=== PATIENT | male | born 1940 | race Caucasian/White ===

== ENCOUNTER → 2016-11-03 | Outpatient (CLI) | payer OTHER ==
[~2016-11-03] MED LIST: IOPAMIDOL (ISOVUE 370) 75 ML BTL IV ONE
--- NOTE | 2016-11-04 16:21 | CT ---
CT Angiogram of the Abdomen and Pelvis, With Bilateral Lower Extremity Runoff Angiogram Indication: Status post left leg stenting. Pain. Evaluate patency. Technique: 1.25-mm thin axial images are performed from the lung bases to the ankles during intraven ous contrast injection of 100 mL of Isovue-370. Coronal and parasagittal reformatted images are revi ewed on a separate workstation. Dose reduction techniques were utilized. Comparison: September 01, 2015. Findings CT Angiogram of the Abdomen and Pelvis: Descending thoracic aorta is normal in size, with mild ather osclerosis. Celiac trunk, SMA, and bilateral renal arteries are widely patent. Incidentally noted i s a small accessory inferior pole right renal artery. There is an infrarenal abdominal aortic aneury sm that measures 3.7 x 3.9 cm. It is unchanged from the prior CT. The aneurysm stops above the bifu rcation. There is moderate iliac atherosclerosis bilaterally. This is contributing to mild luminal stenosis, less than 30 degrees, in the right common iliac artery, and mild to moderate stenosis on the left, 40 to 50%, especially in the central left common iliac artery. The internal iliac artery origin on the left is occluded, with branches reconstituted distally. The internal iliac artery on the right is p atent. There is mild atherosclerosis of bilateral extremity iliac arteries, without significant rate-limitin g stenosis. None of these are particularly changed. Runoff Angiogram Right: There is moderate atherosclerosis of the common femoral artery, with approximately 30 to 40% stenosis at the mid femoral head. SFA is chronically occluded from its origin down to the popliteal artery. The profunda is widely patent. The popliteal artery is reconstituted, with subsequent three -vessel runoff to ankle. Left: There is moderate plaque at the common femoral artery, with 40% luminal stenosis. There is a widely patent profunda. The SFA stent, which starts proximal thigh, extending to distal thigh, is oc cluded. The proximal SFA above the stent is occluded, and the popliteal artery distal to the stent i s occluded. The distal popliteal artery is reconstituted, followed by two-vessel runoff to left ankl e. CT Abdomen and Pelvis: Arterial phase evaluation of the solid and visceral organs are grossly normal . At the ileocecal valve, there is a mass-like protrusion of 4.6 x 3.3 cm that is nonspecific. This could just represent a bulbous ileocecal valve. The appendix is normal. Mass at the ileocecal valv e is not completely excluded. Has the patient had a colonoscopy? This area was fairly normal on the previous CT scan. The lung bases are clear. Impressions 1. Occluded left SFA stent, with subsequently occluded entire left SFA and proximal popliteal artery . 2. Chronically occluded right SFA and proximal popliteal artery. 3. Reconstitution of bilateral distal popliteal arteries. 4. Three-vessel runoff on the right, two-vessel runoff on the left. 5. No change in infrarenal abdominal aortic aneurysm at 3.7 x 3.9 cm. 6. Bulbous appearance at ileocecal valve, new since prior CT. Differential includes prominent ileoc ecal valve, stool, versus mass. Has the patient had a recent colonoscopy? Findings are discussed with Dr. See Baer.
== END ==
LOC: FIMAGING 15:38
PROVIDERS: ATTEND Internal Medicine
DX: Z98.890 Other specified postprocedural states (principal); I74.3 Embolism and thrombosis of arteries of the lower extremities
CPT/HCPCS: Q9967

== ENCOUNTER 2016-11-29 13:51 | Emergency (ER) | payer OTHER ==
--- NOTE | 2016-11-29 13:59 | EDPHY ---
H & P Stated Complaint: Intermittent abd discomfort x 3 days that is gone now; relieved w/mylanta - Personal History Current Tetanus Diphtheria and Acellular Pertussis (TDAP): Yes Tetanus Vaccine Date: 3 yrs ago - Medical/Surgical History Hx Splenectomy or Spleen Trauma: No Other PMH: CAD, PVD, AAA, COPD, CARDIAC STENTS - Social History Smoking Status: Former smoker Time Seen by Provider: 11/29/16 13:58 Constitutional: Initial Vital Signs Temperature (C) 36.9 C 11/29/16 13:52 Heart Rate 81 11/29/16 13:52 Respiratory Rate 18 11/29/16 13:52 Blood Pressure 161/87 H 11/29/16 13:52 O2 Sat (%) 93 11/29/16 13:52 O2 Delivery Mode Room Air Allergies/Adverse Reactions: No Known Allergies Allergy (Verified 11/29/16 13:56) Home Medications: Medication Instructions Recorded Clopidogrel Bisulfate [Plavix (*)] 75 mg PO DAILY 03/03/12 Fluticasone/Salmeter 500/50Mcg 1 inh IH BID 03/03/12 [Advair 500/50 (*)] Acetaminophen [Tylenol 325mg (*)] 975 mg PO BID 08/27/16 Albuterol [Proventil Inhaler HFA 1 - 2 puffs IH Q4H PRN 08/27/16 (*)] Ascorbic Acid [Vitamin C 500 mg 500 mg PO DAILY 08/27/16 (*)] Aspirin EC [Aspirin EC 81 mg (*)] 81 mg PO DAILY 08/27/16 Atorvastatin Calcium [Lipitor 20 20 mg PO DAILY 08/27/16 mg (*)] Calcium Carbonate [Oyster Shell 500 mg PO DAILY 08/27/16 Calcium 500 mg (*)] Carvedilol [Coreg (*)] 12.5 mg PO BIDMEAL 08/27/16 Cholecalciferol Vit D3 [Vitamin D3 5,000 units PO DAILY 08/27/16 (*)] Cyanocobalamin [Vitamin B12 (*)] 5,000 mcg PO DAILY 08/27/16 Docusate Sodium [Colace 100 MG (*)] 100 mg PO HS PRN 08/27/16 Herbals/Supplements -Info Only 1 ea PO DAILY 08/27/16 Loratadine [Claritin 10 mg] 10 mg PO DAILY PRN 08/27/16 Losartan Potassium [Cozaar 50 mg 50 mg PO DAILY 08/27/16 (*)] Magnesium Oxide [Magnesium Oxide 400 mg PO DAILY 08/27/16 400 mg (*)] traMADol [Ultram 50 mg (*)] 50 mg PO HS 08/27/16 Pantoprazole Sodium [Protonix 40mg 40 mg PO DAILY #20 tab 11/29/16 (*)] Medical Decision Making - Diagnostics Imaging: CT scan of the abdomen and pelvis read by Dr Ornelas reveals a 4 cm abdominal aortic aneurysm, unchanged from prior CT scan 1 month ago. (Akosua Alvarado) ED Course/Re-evaluation: CHIEF COMPLAINT: Epigastric pain HISTORY OF PRESENT ILLNESS: The patient is a 75 y/o male arriving with his complaining of now resolved epigastric pain onset today. He has an extensive cardiac history including multiple stents, CAD, SC, and AAA. He says, "I don't think there's a damn thing wrong with me" and is only here at the recommendation of his PCP due to his medical history. His believes the new medication he started, Pletal, is causing indigestion. His symptoms resolve 30 minutes after Mylanta administration. He denies shortness of breath, fever, lightheadedness, or other symptoms. REVIEW OF SYSTEMS: A 10 point review of systems was performed and is negative with the exception of the elements mentioned in the history of present illness. PHYSICAL EXAM: HR, BP, O2 Sat, RR. Temp noted General Appearance: Alert, well hydrated, appropriate, and non-toxic appearing. Head: Atraumatic without scalp tenderness or obvious injury Eyes: Pupils equal, round, reactive to light and accommodation, EOMI, no trauma , no injection. Ears: Clear bilaterally, no perforation, normal landmarks Nose: Atraumatic, no rhinorrhea, clear. Throat: There is no erythema or exudates, no lesions, normal tonsils, mucus membranes moist. Neck: Supple, 2+ carotid upstroke, nontender, no lymphadenopathy. Respiratory: No retractions, no distress, no wheezes, and no accessory muscle use. Lungs are clear to auscultation bilaterally. Cardiovascular: Regular rate and rhythm, no murmurs, rubs, or gallops. Bilateral carotid, radial, dorsalis pedis, and posterior tibial pulses intact. Good capillary refill all extremities. Gastrointestinal: Abdomen is soft, nontender, non-distended, no masses, no rebound, no guarding, no peritoneal signs. Musculoskeletal: Normal active ROM of all extremities, atraumatic. Neurological: Alert, appropriate, and interactive. The patient has normal DTRs and non-focal cranial nerves, motor, sensory, and cerebellar exam. Skin: No rashes, good turgor, no nodules on palpation. Past medical history: CAD, SC, COPD, diabetes, "level 4" abdominal aortic aneurysm Past surgical history: Multiple cardiac stents, bilateral leg stents Family history: noncontributory Social history: at bedside. From [place]. Smoker. 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 PCP Dr. Kulkarni DIFFERENTIAL DIAGNOSIS: The differential diagnosis for the patient's abdominal pain included but was not limited to appendicitis, cholecystitis, hernias, testicular torsion, gastritis, cardiac causes, and urinary tract infection. MEDICAL DECISION MAKING: This is a 75 y/o male with significant cardiac history and history of AAA presenting to the ED after a resolved episode of epigastric pain. His pain resolved after his administered Mylanta. He feels fine now and wants to go home as soon as possible. Plan for abdominal CT to rule out acute process. 1454: Patient signed out to Dr. Alvarado at shift change pending CT results. Plan for discharge home if CT shows nothing acute. (Levy Jurado) This patient was signed over to me to check the CT scan and if the CT scan is negative to discharge the patient home. I discussed the CT scan results to the patient's . They have multiple questions. He has a one-week history epigastric discomfort that occurs after eating. The abdominal discomfort has awakened him at night. He has taken Mylanta with complete relief. No discomfort today. He was sent to the emergency department to evaluate his known abdominal aortic aneurysm. There is no change in the AAA from a prior CT scan 1 month ago. Abdomen is soft and nontender. GERD instructions given. ( Akosua Alvarado) Differential Diagnosis: Differential diagnosis includes though it is not limited to appendicitis, cholecystitis, diverticulitis, pyelonephritis, bowel perforation, small bowel obstruction. (Akosua Alvarado) - Data Points Laboratory Results: Laboratory Results 11/29/16 13:44 11/29/16 13:44 Departure - Departure Disposition: Home, Routine, Self-Care Clinical Impression: Epigastric abdominal pain Instructions: Abdominal Pain (ED) Additional Instructions: Follow up with your primary care provider for symptoms not improved over the next 2-3 days. Return to the ED for any worsening of conditions. Referrals: Adolfo Kulkarni MD [Primary Care Provider] - As per Instructions Prescriptions: Pantoprazole Sodium [Protonix 40mg (*)] 40 mg PO DAILY #20 tab Report Scribed for: Levy Jurado Report Scribed by: Adriana Pabon Date of Report: 11/29/16 Time of Report: 14:54
[2016-11-29 14:09] VITALS: RESP 16
[2016-11-29 14:26] LABS: % IMMATURE GRANULYOCYTES 0.3 % (0.0-1.1); ABSOLUTE IMMATURE GRANULOCYTES 0.02 10^3/uL (0.00-0.10); ADD DIFF? NO; ADD MORPH? NO; ADD SCAN? NO; ATYPICAL LYMPHOCYTE FLAG 0 (0-99); FRAGMENT RBC FLAG 0 (0-99); HEMATOCRIT 39.3 % (40.0-51.0); HEMOGLOBIN 13.4 g/dL (13.7-17.5); LEFT SHIFT FLG 0 (0-99); LIPEMIA HEMOLYSIS FLAG 90 (0-99); MEAN CELL HEMOGLOBIN 32.3 pg (27.9-34.1); MEAN CELL HEMOGLOBIN CONCENTR. 34.1 g/dL (32.4-36.7); MEAN CELL VOLUME 94.7 fL (81.5-99.8); MEAN PLATELET VOLUME 9.2 fL (8.7-11.7); PLATELET CLUMPS FLAG 0 (0-99); PLATELET COUNT 175 10^3/uL (150-400); RED BLOOD CELL COUNT 4.15 10^6/uL (4.40-6.38)
[2016-11-29 14:38] LABS: ALANINE AMINOTRANSFERASE 168 IU/L (21-72); ALBUMIN 3.6 g/dL (3.5-5.0); ANION GAP 10 mEq/L (8-16); ASPARTATE AMINOTRANSFERASE 77 IU/L (17-59); BILIRUBIN,TOTAL 0.5 mg/dL (0.1-1.4); BILIRUBIN-CONJUGATED 0.1 mg/dL (0.0-0.5); BILIRUBIN-UNCONJUGATED 0.4 mg/dL (0.0-1.1); CALCIUM 9.3 mg/dL (8.5-10.4); CARBON DIOXIDE 26 mEq/l (22-31); CHLORIDE 103 mEq/L (97-110); CREATININE 0.8 mg/dL (0.7-1.3); GLOMERULAR FILTRATION RATE > 60; GLUCOSE 163 mg/dL (70-100); POTASSIUM 4.1 mEq/L (3.5-5.2); SODIUM 139 mEq/L (134-144); TOTAL PROTEIN 6.8 g/dL (6.3-8.2)
[2016-11-29] MEDS ORDERED: IOPAMIDOL (ISOVUE-300) 100 ML BTL IV ONE (14:56)
--- NOTE | 2016-11-29 15:47 | CT ---
CT Scan of the Abdomen and Pelvis (With Contrast) at 1505 hours History: Epigastric abdominal pain. Abdominal aortic aneurysm. Technique: Axial computed tomographic images of the abdomen and pelvis were obtained, with the uneve ntful intravenous administration of 85 mL Isovue-300 contrast. No oral or rectal contrast, which fisher its the study. Dose reduction techniques were utilized. Comparison: CT November 03, 2016. CT Abdomen Findings Lung bases: No pleural effusion. Liver: Normal. Biliary system: No obstruction. Spleen: Normal. Pancreas: Normal. Adrenals: Normal. Kidneys: No obstruction or solid masses.. Bilateral perinephric stranding, without urinary tract obs truction. Abdominal Aorta: Severe atherosclerotic abdominal aorta and iliac arteries, with infrarenal abdomina l aortic aneurysm, measuring 4 x 3.8 cm, appearing similar to one month ago, with circumferential mur al thrombus. Moderate to severe atherosclerotic calcification involving the superior mesenteric arter y on image #27 of series #2, without complete thrombosis. Celiac artery and inferior mesenteric gabino cara appear patent. No gastric distention. No bowel obstruction.. No bowel obstruction, ascites, or significant retroperitoneal lymphadenopathy. CT Pelvis Findings: No diverticulitis or distal bowel or urinary tract obstruction. Multilevel severe degenerative disk disease lumbar spine, worse at L4-L5, with severe bilateral facet arthropathy, resulting in moderate central canal stenosis. Impression: 1. Atherosclerotic aorta, with infrarenal abdominal aortic aneurysm, measuring 4 x 3.8 cm. No aorti c leak or dissection. 2. Atherosclerotic disease also involving the SMA. No complete thrombosis. 3. No bowel obstruction, ascites, pneumoperitoneum, or significant adenopathy. 4. Degenerative lumbar spine. Findings and recommendations discussed with Emergency Department physician, Dr. Akosua Alvarado, at 153 0 hours, on November 29, 2016. Final report concurs with initial preliminary interpretation. E:rosa
[2016-11-29 16:04] VITALS: BP 142/79; PULSE 70; TEMP 98.1; O2SAT 93
[2016-11-29 21:41] LABS: ALKALINE PHOSPHATASE 53 IU/L (38-126)
== END 2016-11-29 16:03 | disposition home or self-care (01) ==
DX: R10.13 Epigastric pain (principal); I25.10 Atherosclerotic heart disease of native coronary artery without angina pectoris; I25.2 Old myocardial infarction; J44.9 Chronic obstructive pulmonary disease, unspecified; E11.9 Type 2 diabetes mellitus without complications; Z79.82 Long term (current) use of aspirin; Z87.891 Personal history of nicotine dependence
CPT/HCPCS: 74177; 99284; Q9967

== ENCOUNTER 2017-01-23 12:02 | Emergency (ER) | payer OTHER ==
[2017-01-23 12:08] VITALS: TEMP 97.5; O2SAT 93
--- NOTE | 2017-01-23 12:29 | CPEKG ---
Heart Rate: 66 RR Interval: 909 P-R Interval: 140 QRSD Interval: 110 QT Interval: 416 QTC Interval: 436 P [place]: 64 QRS [place]: -56 T Wave [place]: 93 EKG Severity - ABNORMAL ECG - EKG Impression: SINUS RHYTHM EKG Impression: LEFT ANTERIOR FASCICULAR BLOCK EKG Impression: CONSIDER ANTEROSEPTAL INFARCT Electronically Signed By: Praful Florez 25-Jan-2017 08:59:01
--- NOTE | 2017-01-23 12:36 | EDPHY ---
H & P Stated Complaint: syncopal event in pentecostal/l sided ?chest pain Time Seen by Provider: 01/23/17 12:13 HPI/ROS: This is a 76-year-old male presenting to the emergency department status post syncope in pentecostal this morning. Patient states he was not feeling that well this morning generalized weakness prior to going to pentecostal. while he was in pentecostal he was having some left upper quadrant pain and at that time he felt dizzy and he was going to faint. reports he did pass out falling on the ground, she states he did not hit his head. able to arouse right away, EMS at scene told patient to come to the ER. drove patient by private vehicle. Patient states he does not really know what happened has just this generalized weakness feeling, no chest pain or shortness of breath at this time, he states he does normally have a headache and ear ringing but his headache on left side was worse than normal, denies any vision changes. Patient does have a significant cardiac history CAD, NE with several stents, DVT, on Plavix. REVIEW OF SYSTEMS: Constitutional: No fever chills, decreased appetite since yesterday Eyes: No blurred vision ENT: No sore throat Respiratory: No cough or shortness of breath Cardiac: No chest pain Gastrointestinal: Left upper quadrant pain which has resolved : No urinary discomfort Musculoskeletal: Generalized weakness Skin: No rash Neurological: Positive headache left side worse than normal Source: Patient, Family - Personal History Current Tetanus/Diphtheria Vaccine: Yes Tetanus Vaccine Date: 3 yrs ago - Medical/Surgical History Hx Asthma: No Hx Chronic Respiratory Disease: Yes Hx Diabetes: No Hx Cardiac Disease: Yes Hx Renal Disease: No Hx Cirrhosis: No Hx Alcoholism: No Hx HIV/AIDS: No Hx Splenectomy or Spleen Trauma: No Other PMH: CAD, PVD, AAA, COPD, CARDIAC STENTS l leg stents - Social History Smoking Status: Former smoker - Physical Exam Exam: CONSTITUTIONAL: patient appeared well nourished, non-ill appearing and normally developed. No acute distress. Vital signs as documented. HEENT: Normocephalic atraumatic PERRLA. EOMI. Oropharynx normal and no lacerations or abrasions NECK: Supple, without jugular venous distension, tracheal deviation. FROM without pain RESP: Non-labored resp effort, airway patent, CTAB CARDIAC: RRR w/o murmur, tammi. 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 Positive cms intact SKIN: Warm and dry no rashes PSYCH: Normal affect, calm, no distress, pleasant, acting appropriately Constitutional: Initial Vital Signs Temperature (C) 36.4 C 01/23/17 12:06 Heart Rate 69 01/23/17 12:06 Respiratory Rate 22 H 01/23/17 12:06 Blood Pressure 116/79 01/23/17 12:06 O2 Sat (%) 93 01/23/17 12:06 O2 Delivery Mode Room Air Allergies/Adverse Reactions: lorazepam Allergy (Verified 01/23/17 13:12) Other-Enter Comments Home Medications: Medication Instructions Recorded Clopidogrel Bisulfate [Plavix (*)] 75 mg PO DAILY 03/03/12 Acetaminophen [Tylenol 325mg (*)] 650 mg PO BID PRN 08/27/16 Albuterol [Proventil Inhaler HFA 1 - 2 puffs IH Q4H PRN 08/27/16 (*)] Ascorbic Acid [Vitamin C 500 mg 500 mg PO DAILY 08/27/16 (*)] Aspirin EC [Aspirin EC 81 mg (*)] 81 mg PO DAILY 08/27/16 Atorvastatin Calcium [Lipitor 20 20 mg PO DAILY 08/27/16 mg (*)] Calcium Carbonate [Oyster Shell 500 mg PO DAILY 08/27/16 Calcium 500 mg (*)] Carvedilol [Coreg (*)] 12.5 mg PO BIDMEAL 08/27/16 Cholecalciferol Vit D3 [Vitamin D3 5,000 units PO DAILY 08/27/16 (*)] Cyanocobalamin [Vitamin B12 (*)] 5,000 mcg PO DAILY 08/27/16 Docusate Sodium [Colace 100 MG (*)] 100 mg PO HS PRN 08/27/16 Herbals/Supplements -Info Only 1 ea PO DAILY 08/27/16 Losartan Potassium [Cozaar 50 mg 50 mg PO DAILY 08/27/16 (*)] Magnesium Oxide [Magnesium Oxide 400 mg PO DAILY 08/27/16 400 mg (*)] traMADol [Ultram 50 mg (*)] 50 mg PO HS 08/27/16 Pantoprazole Sodium [Protonix 40mg 40 mg PO DAILY #20 tab 11/29/16 (*)] Cilostazol [Pletal (*)] 100 mg PO BID 01/23/17 Medical Decision Making - Diagnostics EKG Interpretation: 12 lead EKG: Indication: syncope and dizziness INTERPRETATION: Sinus rhythm ED Course/Re-evaluation: Discussed plan of care the patient: EKG, CXR, and CT head, labs. Discussed with patient's likely admit due to his cardiac history, pt stated he will not stay for observation 1530: consulted with Dr. Florez with Cardiology, pt to follow up with Dr. Baer tomorrow . 1530 spoke with patient regarding him to follow up with Dr. Baer on Tuesday. Patient did verbalized understanding. Discharge home---> stable Differential Diagnosis: Differential diagnosis considered but not limited to subarachnoid hemorrhage, NE , - Data Points Laboratory Results: Laboratory Results 01/23/17 12:35 Departure - Departure Disposition: Home, Routine, Self-Care Clinical Impression: Syncope Qualifiers: Syncope type: unspecified Qualified Code(s): R55 - Syncope and collapse Condition: Good Instructions: Syncope (ED) Additional Instructions: 1. I spoke with Dr. Florez, finance effectiveness manager. He instructed for you to follow up with Dr. Baer's office tomorrow or Tuesday. 2. If at any point time your symptoms worsen or become life-threatening, if you have any chest pain, return to the emergency department Referrals: Adolfo Kulkarni MD [Primary Care Provider] - As per Instructions See Baer MD [Medical Doctor] - As per Instructions
[2017-01-23 13:03] LABS: INR 1.01 (0.83-1.16); PROTIME(PATIENT) 13.2 SEC (12.0-15.0)
[2017-01-23 13:04] LABS: APTT 27.3 SEC (23.0-38.0)
[2017-01-23 13:07] LABS: CREATINE KINASE-MB FRACTION 1.11 ng/mL (0-3.19); TROPONIN I < 0.012 ng/mL (0-0.034)
[2017-01-23 14:01] LABS: ANION GAP 11 mEq/L (8-16); CALCIUM 9.5 mg/dL (8.5-10.4); CARBON DIOXIDE 25 mEq/l (22-31); CHLORIDE 105 mEq/L (97-110); CREATININE 1.1 mg/dL (0.7-1.3); GLOMERULAR FILTRATION RATE > 60; GLUCOSE 148 mg/dL (70-100); SODIUM 141 mEq/L (134-144)
[2017-01-23 15:43] VITALS: BP 122/83; PULSE 65; RESP 18
== END 2017-01-23 15:41 | disposition home or self-care (01) ==
DX: R55 Syncope and collapse (principal); I25.10 Atherosclerotic heart disease of native coronary artery without angina pectoris; J44.9 Chronic obstructive pulmonary disease, unspecified; Z87.891 Personal history of nicotine dependence; Z79.82 Long term (current) use of aspirin; Z95.5 Presence of coronary angioplasty implant and graft

== ENCOUNTER → 2017-02-10 | Outpatient (CLI) | payer OTHER | LOC: FIMAGING 09:00 | PROVIDERS: ATTEND Internal Medicine Cardiovascular Disease | DX: I73.9 Peripheral vascular disease, unspecified (principal); I25.10 Atherosclerotic heart disease of native coronary artery without angina pectoris; I10 Essential (primary) hypertension ==

== ENCOUNTER → 2017-02-11 | Outpatient (CLI) | payer OTHER | LOC: BMCIMAGING 11:30 | PROVIDERS: ATTEND Nurse Practitioner Adult Health | DX: R05 Cough (principal); R09.02 Hypoxemia; Z95.5 Presence of coronary angioplasty implant and graft ==

== ENCOUNTER → 2017-03-31 | Outpatient (CLI) | payer OTHER | LOC: BHFA 13:15 | PROVIDERS: ATTEND Internal Medicine Cardiovascular Disease | DX: I25.10 Atherosclerotic heart disease of native coronary artery without angina pectoris (principal); I73.9 Peripheral vascular disease, unspecified ==

== ENCOUNTER → 2017-06-03 | Outpatient (CLI) | payer OTHER | LOC: BMCIMAGING 15:13 | PROVIDERS: ATTEND Physician Assistant Medical | DX: I65.21 Occlusion and stenosis of right carotid artery (principal); I70.8 Atherosclerosis of other arteries; R09.89 Other specified symptoms and signs involving the circulatory and respiratory systems; I25.10 Atherosclerotic heart disease of native coronary artery without angina pectoris; Z87.891 Personal history of nicotine dependence ==

== ENCOUNTER 2017-10-01 15:38 | Inpatient (IN) | payer OTHER ==
[2017-10-01] MEDS ORDERED: methylPREDNISolone SOD SUCC 125 MG/2 ML VIAL IVP ONE (16:25)
[2017-10-01] MEDS ORDERED: IPRATROPIUM/ALBUTEROL 3 ML DEYVIAL IH ONE (16:25)
--- NOTE | 2017-10-01 16:28 | EDPHY ---
H & P Time Seen by Provider: 10/01/17 15:56 HPI/ROS: CHIEF COMPLAINT: Wheezing, cough HISTORY OF PRESENT ILLNESS: Patient is a 76-year-old male with a history of COPD, coronary artery disease and AAA who presents emergency department with increasing shortness of breath and wheezing. The patient states he developed cough and shortness of breath 2-3 days ago. Is gradually progressed and worsened. His cough is nonproductive. He has had no fevers or chills. No chest pain, nausea, vomiting or diaphoresis. He has had no leg pain or swelling. He has been taking albuterol nebulizer at home without much relief. REVIEW OF SYSTEMS: My complete review of systems is negative except as mentioned in the HPI. Past Medical/Surgical History: Includes COPD, coronary artery disease, peripheral vascular disease, AAA, hypertension, high cholesterol Past surgical history: Includes stents for peripheral vascular disease Social history: The patient does not smoke. He is here with his . Smoking Status: Former smoker Physical Exam: 37.2, 180/97, 86, 18, 94% on room air GENERAL: Well-appearing, in no acute distress, alert. HEENT: Eyes normal to inspection, normal pharynx, no signs of dehydration. NECK: No thyromegaly, no lymphadenopathy, supple. RESPIRATORY: Coarse breath sounds bilaterally, no rales, rhonchi or wheezing. CVS: Regular rate and rhythm, no rubs, murmurs, or gallops. ABDOMEN: Soft, nontender, nondistended, no organomegaly. BACK: Normal to inspection, no CVA tenderness. SKIN: Normal color, no rash, warm, dry. No pallor. EXTREMITIES: No pedal edema, no calf tenderness, no Homans sign or cords, no joint swelling. NEURO/PSYCH: Alert and oriented x3, normal mood and affect, normal motor sensory exam. No obvious cranial nerve deficit. Constitutional: Initial Vital Signs Temperature (C) 37.2 C 10/01/17 15:44 Heart Rate 86 10/01/17 15:44 Respiratory Rate 18 10/01/17 15:44 Blood Pressure 188/97 H 10/01/17 15:44 O2 Sat (%) 94 10/01/17 15:44 O2 Delivery Mode Room Air Allergies/Adverse Reactions: lorazepam Allergy (Verified 10/01/17 15:40) Other-Enter Comments Home Medications: Medication Instructions Recorded Clopidogrel Bisulfate [Plavix (*)] 75 mg PO DAILY 03/03/12 Acetaminophen [Tylenol 325mg (*)] 650 mg PO BID PRN 08/27/16 Albuterol [Proventil Inhaler HFA 1 - 2 puffs IH Q4H PRN 08/27/16 (*)] Ascorbic Acid [Vitamin C 500 mg 500 mg PO DAILY 08/27/16 (*)] Aspirin EC [Aspirin EC 81 mg (*)] 81 mg PO DAILY 08/27/16 Atorvastatin Calcium [Lipitor 20 20 mg PO DAILY 08/27/16 mg (*)] Calcium Carbonate [Oyster Shell 500 mg PO DAILY 08/27/16 Calcium 500 mg (*)] Carvedilol [Coreg (*)] 12.5 mg PO BIDMEAL 08/27/16 Cholecalciferol Vit D3 [Vitamin D3 5,000 units PO DAILY 08/27/16 (*)] Cyanocobalamin [Vitamin B12 (*)] 5,000 mcg PO DAILY 08/27/16 Docusate Sodium [Colace 100 MG (*)] 100 mg PO HS PRN 08/27/16 Herbals/Supplements -Info Only 1 ea PO DAILY 08/27/16 Losartan Potassium [Cozaar 50 mg 50 mg PO DAILY 08/27/16 (*)] Magnesium Oxide [Magnesium Oxide 400 mg PO DAILY 08/27/16 400 mg (*)] Pantoprazole Sodium [Protonix 40mg 40 mg PO DAILY #20 tab 11/29/16 (*)] Medical Decision Making - Diagnostics Imaging Results: Imaging Impressions Chest X-Ray 10/01/17 16:25 Impression: Underlying emphysema with central bronchitis.. ED Course/Re-evaluation: In the emergency department I discussed possible etiologies with the patient and his . I answered all his questions. IV was placed. Laboratory studies , EKG and chest x-ray were ordered. Patient was given a DuoNeb and Solu-Medrol for his cough and history of COPD. I reviewed the patient's laboratory studies. His white count was normal. He is mildly anemic. His chemistry panel was normal. His D-dimer was elevated at 1.18. BNP and troponin are pending. Chest x-ray: No obvious infiltrate. A CT angiogram of the chest was ordered. Patient has a normal creatinine. His D-dimer was elevated. I discussed this with the patient and answered all his questions. I discussed the plan with the patient. I answered all his questions. He was lying comfortably in the bed on recheck. No worsening respiratory distress. He does not feel markedly better after the DuoNeb. BNP 455. Troponin negative. Patient had a positive influenza A. CT angiogram: Please refer the dictated report by Dr. Graff. No acute disease noted. 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 I discussed the results with the patient. All her questions. I discussed the case with Dr. Jay will admit the patient. Patient given Tamiflu 75 mg orally. Differential Diagnosis: My differential includes but is not limited to COPD exacerbation, bronchitis, pneumonia, empyema, , ACS, acute [place], dissection, aneurysm, influenza, viral illness - Data Points Laboratory Results: Laboratory Results 10/01/17 16:30 10/01/17 16:30 10/01/17 10/01/17 10/01/17 16:30 16:30 16:30 WBC 6.71 10^3/uL 10^3/uL (3.80-9.50) RBC 4.14 10^6/uL L 10^6/uL (4.40-6.38) Hgb 13.9 g/dL g/dL (13.7-17.5) Hct 38.9 % L % (40.0-51.0) MCV 94.0 fL fL (81.5-99.8) MCH 33.6 pg pg (27.9-34.1) MCHC 35.7 g/dL g/dL (32.4-36.7) RDW 12.1 % % (11.5-15.2) Plt Count 174 10^3/uL 10^3/uL (150-400) MPV 9.5 fL fL (8.7-11.7) Neut % (Auto) 73.4 % % (39.3-74.2) Lymph % (Auto) 10.6 % L % (15.0-45.0) Prowers % (Auto) 14.5 % H % (4.5-13.0) Eos % (Auto) 1.0 % % (0.6-7.6) Baso % (Auto) 0.4 % % (0.3-1.7) Nucleat RBC Rel Count 0.0 % % (0.0-0.2) Absolute Neuts (auto) 4.92 10^3/uL 10^3/uL (1.70-6.50) Absolute Lymphs (auto) 0.71 10^3/uL L 10^3/uL (1.00-3.00) Absolute Monos (auto) 0.97 10^3/uL H 10^3/uL (0.30-0.80) Absolute Eos (auto) 0.07 10^3/uL 10^3/uL (0.03-0.40) Absolute Basos (auto) 0.03 10^3/uL 10^3/uL (0.02-0.10) Absolute Nucleated RBC 0.00 10^3/uL 10^3/uL (0-0.01) Immature Gran % 0.1 % % (0.0-1.1) Immature Gran # 0.01 10^3/uL 10^3/uL (0.00-0.10) D-Dimer 1.18 ug/mLFEU H ug/mLFEU (0.00-0.50) VBG Lactic Acid Sodium 138 mEq/L mEq/L (134-144) Potassium 4.0 mEq/L mEq/L (3.5-5.2) Chloride 98 mEq/L mEq/L (97-110) Carbon Dioxide 26 mEq/l mEq/l (22-31) Anion Gap 14 mEq/L mEq/L (8-16) BUN 13 mg/dL mg/dL (7-23) Creatinine 0.8 mg/dL mg/dL (0.7-1.3) Estimated GFR > 60 Glucose 100 mg/dL mg/dL (70-100) Calcium 9.1 mg/dL mg/dL (8.5-10.4) Troponin I < 0.012 ng/mL ng/mL (0.000-0.034) NT-Pro-B Natriuret Pep 455 pg/mL H pg/mL (0-450) 10/01/17 16:30 WBC RBC Hgb Hct MCV MCH MCHC RDW Plt Count MPV Neut % (Auto) Lymph % (Auto) Prowers % (Auto) Eos % (Auto) Baso % (Auto) Nucleat RBC Rel Count Absolute Neuts (auto) Absolute Lymphs (auto) Absolute Monos (auto) Absolute Eos (auto) Absolute Basos (auto) Absolute Nucleated RBC Immature Gran % Immature Gran # D-Dimer VBG Lactic Acid 1.2 mmol/L mmol/L (0.7-2.1) Sodium Potassium Chloride Carbon Dioxide Anion Gap BUN Creatinine Estimated GFR Glucose Calcium Troponin I NT-Pro-B Natriuret Pep Microbiology Results: MICROBIOLOGY 10/01/17 17:00 Nasal, Sinus - Swab Respiratory Panel (PCR) - Final Influenza Virus Type A H3 Medications Given: Discontinued Medications Albuterol/Ipratropium (Duoneb) 3 ml IH EDNOW ONE Stop: 10/01/17 16:26 Last Admin: 10/01/17 16:41 Dose: 3 ml Methylprednisolone Sodium Succinate (Solu-Medrol) 125 mg IVP EDNOW ONE Stop: 10/01/17 16:26 Last Admin: 10/01/17 16:41 Dose: 125 mg Departure - Departure Disposition: [facility] Inpatient Acute Clinical Impression: COPD exacerbation, Influenza A Dyspnea Qualifiers: Dyspnea type: shortness of breath Qualified Code(s): R06.02 - Shortness of breath Condition: Good
[2017-10-01 16:54] LABS: % IMMATURE GRANULYOCYTES 0.1 % (0.0-1.1); ABSOLUTE IMMATURE GRANULOCYTES 0.01 10^3/uL (0.00-0.10); ADD DIFF? NO; ADD MORPH? NO; ADD SCAN? NO; ATYPICAL LYMPHOCYTE FLAG 0 (0-99); FRAGMENT RBC FLAG 0 (0-99); HEMATOCRIT 38.9 % (40.0-51.0); HEMOGLOBIN 13.9 g/dL (13.7-17.5); LEFT SHIFT FLG 0 (0-99); LIPEMIA HEMOLYSIS FLAG 90 (0-99); MEAN CELL HEMOGLOBIN 33.6 pg (27.9-34.1); MEAN CELL HEMOGLOBIN CONCENTR. 35.7 g/dL (32.4-36.7); MEAN PLATELET VOLUME 9.5 fL (8.7-11.7); PLATELET CLUMPS FLAG 0 (0-99); PLATELET COUNT 174 10^3/uL (150-400); RED BLOOD CELL COUNT 4.14 10^6/uL (4.40-6.38); RED CELL DISTRIBUTION WIDTH 12.1 % (11.5-15.2)
[2017-10-01 17:08] LABS: ANION GAP 14 mEq/L (8-16); CALCIUM 9.1 mg/dL (8.5-10.4); CARBON DIOXIDE 26 mEq/l (22-31); CHLORIDE 98 mEq/L (97-110); CREATININE 0.8 mg/dL (0.7-1.3); GLOMERULAR FILTRATION RATE > 60; GLUCOSE 100 mg/dL (70-100); SODIUM 138 mEq/L (134-144)
[2017-10-01 17:20] LABS: TROPONIN I < 0.012 ng/mL (0.000-0.034)
[2017-10-01] MEDS ORDERED: IOPAMIDOL (ISOVUE 370) 100 ML BTL IV ONE (18:33)
[2017-10-01] MEDS ORDERED: SKIN ADHESIVE (DERMABOND) 1 EACH TP ONE (19:31)
[2017-10-01] MEDS ORDERED: TDAP ADULT 0.5 ML INJ (BOOSTRIX) IM ONE (19:31)
[2017-10-01] MEDS ORDERED: OSELTAMIVIR PHOSPHATE 75 MG CAP PO ONE (20:05)
[2017-10-01] MEDS ORDERED: NICOTINE 21 MG/24 HR PATCH TD ONE ×2 (20:19→20:24)
[2017-10-01] MEDS ORDERED: ACETAMINOPHEN 325 MG TAB PO PRN (21:43)
[2017-10-01] MEDS ORDERED: ONDANSETRON DISINTEGRATING 4 MG TAB PO PRN (21:43)
[2017-10-01] MEDS ORDERED: ONDANSETRON 4 MG/2 ML VIAL IVP PRN (21:43)
[2017-10-01] MEDS ORDERED: ALBUTEROL 200 PUFFS/18 GM MDI IH PRN (22:15)
[2017-10-01] MEDS: CARVEDILOL 25 MG TAB PO SCH (22:25)
[2017-10-01] MEDS ORDERED: ASPIRIN EC 81 MG TAB PO SCH (22:30)
[2017-10-01] MEDS ORDERED: CETIRIZINE 10 MG TAB PO SCH (22:30)
[2017-10-01] MEDS ORDERED: guaiFENesin 600 MG TAB.ER PO PRN (22:38)
[2017-10-01] MEDS ORDERED: ATORVASTATIN CALCIUM 20 MG TAB PO SCH (22:45)
[2017-10-01] MEDS: FLUTICASONE/SALMETER 500/50MCG DISKUS IH SCH (22:55)
[2017-10-01] MEDS: IPRATROPIUM/ALBUTEROL 3 ML DEYVIAL NEB SCH (23:10)
--- NOTE | 2017-10-01 23:11 | GHP ---
[f rep st] HISTORY AND PHYSICAL DATE OF ADMISSION: 10/01/2017 CHIEF COMPLAINT: Shortness of breath/confusion. HISTORY OF PRESENT ILLNESS: A 76-year-old man with a long history of emphysematous COPD as well as CAD and PVD presenting with approximately 5 days of increasing shortness of breath, cough, and confusion. When in the ER, he tested positive for influenza and is now being admitted. The patient is, unfortunately, quite confused although his is at the bedside to report for him. The patient denies overt fevers, has been taking his nebulizers, also takes regular inhalers for his COPD including Advair and albuterol p.r.n. He does have a history of high blood pressure, but does not usually run as high as he is right now. The patient denies any worsening of his chronic headaches. He denies history of dementia, but reports every time he gets sick he seems to get confused and has poor memory at baseline. He does not take prednisone at baseline. The patient denies chest pain but has had frequent cough. Currently feeling pretty well after getting Solu-Medrol. REVIEW OF SYSTEMS: Unable to be obtained given patient's confusion. PAST MEDICAL HISTORY: CAD, status post multiple stents, last ejection fraction noted in [facility] was 59%; peripheral vascular disease, status post stents in his right leg, followed by Dr. Baer. PAST SURGICAL HISTORY: Status post stent placement and iliac stent placement. FAMILY HISTORY: No history of COPD or lung cancer in his family. SOCIAL HISTORY: Lives with his . Currently does chewing tobacco. Denies alcohol or illicit drug use. MEDICATIONS: Please see med rec in [facility]. ALLERGIES: Severe allergy to lorazepam, causes increased confusion. PHYSICAL EXAMINATION: VITAL SIGNS: 170/108, heart rate 95, O2 91 on room air, 37.2 degrees C. GENERAL: Pleasant, no acute physical distress, unable to follow conversation very well. answers most of the questions. Sitting in all of his clothes on the couch. No increased psychomotor activity. HEENT: Moist mucous membranes. Pupils equal and reactive. Wearing glasses. No cervical lymphadenopathy. No pharyngeal erythema. No thyromegaly. No bruits. CARDIOVASCULAR: Regular. No murmurs or rubs. RESPIRATORY: Clear without wheezes but decreased breath sounds in bilateral bases. ABDOMEN: Soft, nontender, nondistended, positive bowel sounds. EXTREMITIES: No lower extremity edema. NEURO: Alert, able to state his name, but otherwise not oriented. Pleasant, no agitation. LABORATORY DATA: Notable for white blood cell 6.7, hemoglobin and hematocrit 13 and 38. D-dimer 1.18. Blood gas: Lactic acid 1.2. BMP notable for creatinine 0.8. Troponin less than 0.012. ProBNP 455. Influenza pos. Chest x-ray: Emphysema and bronchitis apparent. CT angio: No PE, positive CAD calcifications, stable spiculated lesion in the right upper lobe. Old medical chart reviewed in [facility] including medications and vascular history. ASSESSMENT: A 76-year-old man with history of COPD/emphysema, coronary artery disease, and peripheral vascular disease presenting with COPD exacerbation, found to have influenza positive in the ER. Given confusion, patient will be admitted for further monitoring, prednisone, oxygen. Dispo pending. PLAN: COPD exacerbation: Solu-Medrol given in the ER. We will continue with prednisone 40 mg once daily starting tomorrow. DuoNeb q.6 hours and p.r.n. Continue home inhalers. Influenza: Given >3 days since onset of sx, will hold on tamiflu. Peripheral vascular disease/CAD: Continue home medications including Plavix and tight blood pressure control. HTN: Poor control but likely 2/2 missing evening meds and addition of solumedro. Cont carvedilol 12.5 and losartan and hydrochlorothiazide. If patient's blood pressure remains elevated, would consider increasing carvedilol although this may likely be from his Solu-Medrol and lack of medications on time. Memory impairment/confusion: Most likely secondary to acute influenza, although patient has had confusion in the past when sick. This would indicate some underlying cognitive issues although may not be dementia at this point. We can refer to PCP for further workup of this. Code status: Full code although the says we will deal with that when it comes. She is his healthcare proxy. DVT prophylaxis: Plan on Lovenox daily. Dispo: Pending patient's clinical improvement and confusion improving. /[id number]/MODL MTDD
--- NOTE | 2017-10-02 04:12 | PDMN ---
Medical Necessity Medical necessity: C/M review: est. > 2 MN LOS for eval and TX of acute COPD exacerbation, influenza, memory impairment / confusion, requiring ongoing Duonebs, oral prednisone, pulse oximetry, supplemental O2, monitoring, comorbid history of COPD, / emphysema, coronary artery disease S/P stents, peripheral vascular disease S/P stents in right leg, current chewing tobacco use, hypertension per H/P.
[2017-10-02 04:31] VITALS: TEMP 98.1
[2017-10-02 05:26] LABS: % IMMATURE GRANULYOCYTES 1.6 % (0.0-1.1); ABSOLUTE IMMATURE GRANULOCYTES 0.11 10^3/uL (0.00-0.10); ADD DIFF? NO; ADD MORPH? NO; ADD SCAN? NO; ATYPICAL LYMPHOCYTE FLAG 10 (0-99); FRAGMENT RBC FLAG 0 (0-99); HEMATOCRIT 37.7 % (40.0-51.0); HEMOGLOBIN 13.5 g/dL (13.7-17.5); LEFT SHIFT FLG 10 (0-99); LIPEMIA HEMOLYSIS FLAG 90 (0-99); MEAN CELL HEMOGLOBIN 33.1 pg (27.9-34.1); MEAN CELL HEMOGLOBIN CONCENTR. 35.8 g/dL (32.4-36.7); MEAN CELL VOLUME 92.4 fL (81.5-99.8); MEAN PLATELET VOLUME 9.8 fL (8.7-11.7); PLATELET CLUMPS FLAG 0 (0-99); PLATELET COUNT 177 10^3/uL (150-400); RED BLOOD CELL COUNT 4.08 10^6/uL (4.40-6.38); RED CELL DISTRIBUTION WIDTH 12.1 % (11.5-15.2)
[2017-10-02 05:46] LABS: ANION GAP 15 mEq/L (8-16); CALCIUM 9.3 mg/dL (8.5-10.4); CARBON DIOXIDE 24 mEq/l (22-31); CHLORIDE 96 mEq/L (97-110); CREATININE 0.8 mg/dL (0.7-1.3); GLOMERULAR FILTRATION RATE > 60; GLUCOSE 201 mg/dL (70-100); POTASSIUM 4.2 mEq/L (3.5-5.2); SODIUM 135 mEq/L (134-144)
[2017-10-02] MEDS: IPRATROPIUM/ALBUTEROL 3 ML DEYVIAL NEB SCH (06:06)
[2017-10-02] MEDS ORDERED: OSELTAMIVIR PHOSPHATE 75 MG CAP PO SCH (08:00)
[2017-10-02 08:13] VITALS: BP 153/93; PULSE 77; RESP 14; O2SAT 92
[2017-10-02] MEDS ORDERED: CLOPIDOGREL BISULFATE 75 MG TAB PO SCH (09:00)
[2017-10-02] MEDS ORDERED: PANTOPRAZOLE SODIUM 40 MG TAB PO SCH (09:00)
[2017-10-02] MEDS ORDERED: LOSARTAN/HCTZ 50/12.5 1 TAB PO SCH (09:00)
[2017-10-02] MEDS ORDERED: CALCIUM CARBONATE 500 MG TAB PO SCH (09:00)
[2017-10-02] MEDS ORDERED: ENOXAPARIN 40 MG/0.4 ML SYR SC SCH (09:00)
[2017-10-02] MEDS ORDERED: predniSONE 20 MG TAB PO SCH (09:00)
[2017-10-02] MEDS ORDERED: CHOLECALCIFEROL VIT D3 1,000 UNITS TAB PO SCH (09:00)
[2017-10-02] MEDS ORDERED: ATORVASTATIN CALCIUM 20 MG TAB PO SCH (09:00)
[2017-10-02] MEDS ORDERED: CYANO/VITAMIN B12 1000 MCG TAB PO SCH (09:00)
[2017-10-02] MEDS ORDERED: MAGNESIUM OXIDE 400 MG TAB PO SCH (09:00)
[2017-10-02] MEDS: CARVEDILOL 25 MG TAB PO SCH (09:19)
[2017-10-02] MEDS: FLUTICASONE/SALMETER 500/50MCG DISKUS IH SCH (09:28)
--- NOTE | 2017-10-02 09:42 | GDS ---
[f rep st] DISCHARGE SUMMARY FINAL DIAGNOSIS: 1. Influenza A infection. 2. Acute encephalopathy. 3. Chronic obstructive pulmonary disease with acute exacerbation. 4. Peripheral vascular disease and coronary artery disease. 5. Hypertension. HOSPITAL COURSE: 76-year-old man admitted with shortness of breath and confusion, found to be influe nza A H3 positive. This triggered a COPD exacerbation. He was treated with Tamiflu as well as predn isone with significant improvement the morning following admission. He initially presented with some confusion as well which is likely metabolic in the setting of acute infection. He improved much mor e quickly than would have been expected given his confusion on presentation. He will be discharged w ith a course of Tamiflu as well as an additional 3 days of prednisone for a burst. His , who has an immunodeficiency, also feels as though she has influenza. I recommended strongly that she go to Urgent Care today to have this further evaluated and consider being treated herself. BILLING: I spent less than 30 minutes on the day of discharge coordinating care. /[id number]/MODL
--- NOTE | 2017-10-02 13:56 | ASDISCHSUM ---
Discharge Information Plan Status:Home with No Needs Medically Cleared to Leave:10/01/2017 Discharge Date:10/02/2017 10:34 AM CM D/C Disposition:Home, Routine, Self-Care ADT D/C Disposition:Home, Routine, Self-Care Projected Discharge Date:10/02/2017 10:34 AM Transportation at D/C:Family Discharge Delay Reason: Follow-Up Date:10/02/2017 10:34 AM Discharge Slot:1 - 8:01 am - 12:00 noon Final Diagnosis:Influenza A infection, acute encephalopathy, COPD w/ acute exacerbation, PVD, CAD, H TN Placement Information Patient Contact Information Contact Name:FOREIGN Relationship: Address:[address] [place] Alternate Phone: [facility] Code:[place] [address] Email: Financial Information Financial Class: Primary Plan Desc:MEDICARE OUTPATIENT Primary Plan Number:[id number] Secondary Plan Desc:[facility] Secondary Plan Number:[id number] Assessment Information [facility] CM Progress Note CM Note CM Note Notes: Reviewed chart regarding discharge plan, pt's progress. Pt admitted for Influenza A infection, acute COPD exacerbation. Pt to discharge home independently w/ no identified needs. Pt to follow up as directed. No IM signed, pt stay <24 hrs. CM avail for any further issues or concerns. Date Signed: 10/02/2017 01:56 PM Electronically Signed By:Aleida Villa RN Intervention Information
[2017-10-02] MEDS ORDERED: NON-FORMULARY NEW DRUG (Loratadine [Claritin 10 Mg] 10 MG) PO SCH (21:00)
== END 2017-10-02 10:34 | disposition home or self-care (01) | DRG 193 ==
LOC: OBSVTOIN 20:04 → F3E 20:47
PROVIDERS: ADMIT Internal Medicine Geriatric Medicine; ATTEND Internal Medicine Geriatric Medicine
DX: J10.1 Influenza due to other identified influenza virus with other respiratory manifestations (principal); G93.40 Encephalopathy, unspecified; J44.1 Chronic obstructive pulmonary disease with (acute) exacerbation; I73.9 Peripheral vascular disease, unspecified; I25.10 Atherosclerotic heart disease of native coronary artery without angina pectoris; I10 Essential (primary) hypertension; E78.00 Pure hypercholesterolemia, unspecified; Z95.5 Presence of coronary angioplasty implant and graft
CPT/HCPCS: 96374; J2930; Q9967

== ENCOUNTER → 2017-10-07 | Outpatient (CLI) | payer OTHER | LOC: BMCIMAGING 16:32 | PROVIDERS: ATTEND Internal Medicine | DX: Z00.00 Encounter for general adult medical examination without abnormal findings (principal) ==

== ENCOUNTER → 2017-12-06 | Outpatient (CLI) | payer OTHER ==
[~2017-12-06] MED LIST changes: +GADOBUTROL 10 ML VIAL IVP ONE; -IOPAMIDOL (ISOVUE 370) 75 ML BTL IV ONE
== END ==
LOC: FIMAGING 13:39
PROVIDERS: ATTEND Psychiatry & Neurology Neurology
DX: G31.9 Degenerative disease of nervous system, unspecified (principal); R90.82 White matter disease, unspecified; I63.9 Cerebral infarction, unspecified
CPT/HCPCS: 70553; A9585

== ENCOUNTER → 2017-12-22 | Outpatient (CLI) | payer OTHER | LOC: FIMAGING 17:39 | PROVIDERS: ATTEND Psychiatry & Neurology Neurology | DX: M50.30 Other cervical disc degeneration, unspecified cervical region (principal); M43.12 Spondylolisthesis, cervical region ==

== ENCOUNTER → 2017-12-28 | Outpatient (CLI) | payer OTHER ==
[~2017-12-28] MED LIST changes: -GADOBUTROL 10 ML VIAL IVP ONE; +IOPAMIDOL (ISOVUE 370) 100 ML BTL IV ONE
== END ==
LOC: CIMAGING 13:51
PROVIDERS: ATTEND Psychiatry & Neurology Neurology
DX: I65.03 Occlusion and stenosis of bilateral vertebral arteries (principal); I65.23 Occlusion and stenosis of bilateral carotid arteries
CPT/HCPCS: 70498; Q9967; 82947-QW

== ENCOUNTER → 2018-01-07 | Outpatient (CLI) | payer OTHER | LOC: BMCIMAGING 11:49 | PROVIDERS: ATTEND Family Medicine | DX: R05 Cough (principal) ==

== ENCOUNTER → 2018-01-09 | Outpatient (CLI) | payer OTHER ==
--- NOTE | 2018-01-10 12:29 | CPEEG ---
[f rep st] ELECTROENCEPHALOGRAM DATE OF STUDY: DATE OF INTERPRETATION: 01/10/2018. DATE OF STUDY: 01/09/2018. INTERPRETATION: Normal EEG during wakefulness and drowsiness. There were no potentially epileptogen ic abnormalities present in the recording. REPORT: This EEG contains 9 Hz alpha activity at the posterior head regions. There was no abnormal activation at rest or during photic stimulation or hyperventilation. The patient briefly became drow sy during the study. There was no abnormal activation during drowsiness or during times of arousal. /[id number]/MODL
== END ==
LOC: FCPNEURO 14:29
PROVIDERS: ATTEND Psychiatry & Neurology Neurology
DX: R41.3 Other amnesia (principal)

== ENCOUNTER 2018-02-07 15:05 | Emergency (ER) | payer OTHER ==
--- NOTE | 2018-02-07 15:30 | CPEKG ---
Heart Rate: 78 RR Interval: 769 P-R Interval: 144 QRSD Interval: 104 QT Interval: 412 QTC Interval: 470 P Lowry: 51 QRS Lowry: -49 T Wave Lowry: 57 EKG Severity - ABNORMAL ECG - EKG Impression: SINUS RHYTHM EKG Impression: VENTRICULAR PREMATURE COMPLEX EKG Impression: LEFT ANTERIOR FASCICULAR BLOCK EKG Impression: Similar to previous Electronically Signed By: Raffi Gudino 07-Feb-2018 15:58:37
[2018-02-07 15:46] LABS: PLATELET COUNT 321 10^3/uL (150-400)
--- NOTE | 2018-02-07 15:56 | EDPHY ---
H & P Stated Complaint: CP Time Seen by Provider: 02/07/18 15:42 HPI/ROS: CHIEF COMPLAINT: Left rib pain HISTORY OF PRESENT ILLNESS: Patient is a 77-year-old man who comes to the emergency depart with his complaining of left-sided rib pain. She states that he fell in the bedroom earlier this morning onto his left rib. The patient denies shoulder pain, head, neck or back pain. He states that he has chronic pain and had multiple rib fractures in the past and has chronic rib pain and pleuritic pain. He also has a history of 2 myocardial infarctions and his wants to have his heart tested. There is some confusion about whether not he had chest pain prior to the fall today. The patient tells me he has not had pain other than his chronic rib pain. The patient's states that he had some chest pain yesterday. No fevers. No diaphoresis. REVIEW OF SYSTEMS: Constitutional: denies: chills, fever, recent illness, recent injury EENTM: denies: blurred vision, double vision, nose congestion Respiratory: denies: cough, shortness of breath Cardiac: See HPI denies: chest pain, irregular heart rate, lightheadedness, palpitations Gastrointestinal/Abdominal: denies: abdominal pain, diarrhea, nausea, vomiting, blood streaked stools Genitourinary: denies: dysuria, frequency, hematuria, pain Musculoskeletal: denies: joint pain, muscle pain Skin: denies: lesions, rash, jaundice, bruising Neurological: denies: headache, numbness, paresthesia, tingling, dizziness, weakness Hematologic/Lymphatic: denies: blood clots, easy bleeding, easy bruising Immunologic/allergic: denies: HIV/AIDS, transplant EXAM: GENERAL: Well-appearing, well-nourished and in no acute distress. HEAD: Atraumatic, normocephalic. EYES: Pupils equal round and reactive to light, extraocular movements intact, sclera anicteric, conjunctiva are normal. ENT: TMs normal, nares patent, oropharynx clear without exudates. Moist mucous membranes. NECK: Normal range of motion, supple without lymphadenopathy or JVD. LUNGS: No rib tenderness, Breath sounds clear to auscultation bilaterally and equal. No wheezes rales or rhonchi. HEART: Regular rate and rhythm without murmurs, rubs or gallops. ABDOMEN: Soft, nontender, normoactive bowel sounds. No guarding, no rebound. No masses appreciated. BACK: No CVA tenderness, no spinal tenderness, step-offs or deformities EXTREMITIES: Normal range of motion, no pitting or edema. No clubbing or cyanosis. NEUROLOGICAL: Cranial nerves II through XII grossly intact. Normal speech, normal gait. 5/5 strength, normal movement in all extremities, normal sensation PSYCH: Normal mood, normal affect. SKIN: Warm, dry, normal turgor, no visible rashes or lesions. Source: Patient Exam Limitations: No limitations - Personal History Current Tetanus/Diphtheria Vaccine: Yes Current Tetanus Diphtheria and Acellular Pertussis (TDAP): Yes Tetanus Vaccine Date: 3 yrs ago - Medical/Surgical History Hx Asthma: No Hx Chronic Respiratory Disease: Yes Hx Diabetes: No Hx Cardiac Disease: Yes Hx Renal Disease: No Hx Cirrhosis: No Hx Alcoholism: No Hx HIV/AIDS: No Hx Splenectomy or Spleen Trauma: No Other PMH: CAD, PVD, AAA, COPD, CARDIAC STENTS l leg stents - Family History Significant Family History: Heart disease - Social History Smoking Status: Former smoker Alcohol Use: None Constitutional: Initial Vital Signs Temperature (C) 36.5 C 02/07/18 15:14 Heart Rate 73 02/07/18 15:14 Respiratory Rate 16 02/07/18 15:14 Blood Pressure 146/82 H 02/07/18 15:14 O2 Sat (%) 93 02/07/18 15:14 O2 Delivery Mode Room Air Allergies/Adverse Reactions: lorazepam Allergy (Verified 02/07/18 15:11) Other-Enter Comments Home Medications: Medication Instructions Recorded Clopidogrel Bisulfate [Plavix (*)] 75 mg PO DAILY 03/03/12 Acetaminophen [Tylenol 325mg (*)] 650 mg PO BID 08/27/16 Albuterol [Proventil Inhaler HFA 1 - 2 puffs IH Q4H PRN 08/27/16 (*)] Aspirin EC [Aspirin EC 81 mg (*)] 81 mg PO HS 08/27/16 Atorvastatin Calcium [Lipitor 20 40 mg PO DAILY 08/27/16 mg (*)] Calcium Carbonate [Oyster Shell 500 mg PO DAILY 08/27/16 Calcium 500 mg (*)] Carvedilol [Coreg (*)] 12.5 mg PO BIDMEAL 08/27/16 Cholecalciferol Vit D3 [Vitamin D3 2,000 units PO DAILY 08/27/16 (*)] Cyanocobalamin [Vitamin B12 (*)] 5,000 mcg PO DAILY 08/27/16 Herbals/Supplements -Info Only 1 ea PO DAILY 08/27/16 Magnesium Oxide [Magnesium Oxide 400 mg PO DAILY 08/27/16 400 mg (*)] Pantoprazole Sodium [Protonix 40mg 40 mg PO DAILY #20 tab 11/29/16 (*)] Fluticasone/Salmeter 500/50Mcg 1 puffs IN BID 10/01/17 [Advair 500/50 (*)] Ipratropium/Albuterol [Duoneb (*)] 3 ml IN BID 10/01/17 Loratadine [Claritin 10 mg] 10 mg PO HS 10/01/17 Losartan/Hctz 50/12.5 [Hyzaar 1 tab PO DAILY 10/01/17 50/12.5MG (*)] predniSONE 40 mg PO DAILY #6 tablet 10/02/17 Medical Decision Making - Diagnostics EKG Interpretation: An EKG obtained and was read and documented in trace view. Please see trace view for full reading and report. Sinus rhythm, no acute ischemic changes, PVC , anterior fascicular block, similar to previous Imaging: Discussed imaging studies w/ o and m supervisor Radiologist ED Course/Re-evaluation: We discussed the testing results. The patient and were reassured. No fracture seen. No DVT or dissection. They are eager to go home. asked about Tylenol and hot packs etc. She has been using these with some success. I encouraged her to continue. We discussed indications for returning. Differential Diagnosis: Partial list of the Differential diagnosis considered include but were not limited to; rib fracture, pneumothorax, contusion and although unlikely based on the history and physical exam, I also considered acute coronary disease, dissection. I discussed these differential diagnoses and the plan with the patient as well as the usual and expected course. The patient understands that the diagnosis is provisional and that in medicine we are not always correct and that further workup is often warranted. Usual and customary warnings were given. All of the patient's questions were answered. The patient was instructed to return to the emergency department should the symptoms at all worsen or return, otherwise to followup with the physician as we discussed. - Data Points Laboratory Results: Laboratory Results 02/07/18 15:35 02/07/18 15:35 Departure - Departure Disposition: Home, Routine, Self-Care Clinical Impression: Chest wall pain Condition: Fair Instructions: Chest Pain (ED) Referrals: Adolfo Kulkarni MD [Primary Care Provider] - As per Instructions
[2018-02-07 16:04] LABS: INR 1.05 (0.83-1.16); PROTIME(PATIENT) 13.9 SEC (12.0-15.0)
[2018-02-07] MEDS ORDERED: IOPAMIDOL (ISOVUE 370) 100 ML BTL IV ONE (16:37)
[2018-02-07 17:45] VITALS: BP 166/98
== END 2018-02-07 18:05 | disposition home or self-care (01) ==
DX: S29.9XXA Unspecified injury of thorax, initial encounter (principal); I25.10 Atherosclerotic heart disease of native coronary artery without angina pectoris; J44.9 Chronic obstructive pulmonary disease, unspecified; Z95.5 Presence of coronary angioplasty implant and graft; Z87.891 Personal history of nicotine dependence; Z79.82 Long term (current) use of aspirin; W18.39XA Other fall on same level, initial encounter; Y92.013 Bedroom of single-family (private) house as the place of occurrence of the external cause
CPT/HCPCS: 71046; 71100; 71275; 93005; 99285; Q9967

== ENCOUNTER → 2018-04-02 | Outpatient (CLI) | payer OTHER | LOC: FCPNEURO 20:00 | PROVIDERS: ATTEND Internal Medicine Sleep Medicine | DX: G47.39 Other sleep apnea (principal); G47.33 Obstructive sleep apnea (adult) (pediatric) ==

== ENCOUNTER 2018-04-09 09:43 | Emergency (ER) | payer OTHER ==
--- NOTE | 2018-04-09 10:03 | EDPHY ---
H & P Time Seen by Provider: 04/09/18 09:54 HPI/ROS: CHIEF COMPLAINT: Collapsed at home HISTORY OF PRESENT ILLNESS: Patient is a history of peripheral vascular disease and coronary disease. He has been undergoing a sleep test for the last month and question whether he needs oxygen at home. Today he was at the kitchen sink at 8:30 a.m. Getting ready to go to [place] when he suddenly got weak and almost fell to the ground and nearly passed out. Did not sustain any trauma, did not have a prodrome. Patient apparently did not actually lose consciousness or have any type of seizure disorder. Not associated with chest pain or shortness of breath or any focal neurologic symptoms. Right now he feels back to normal. REVIEW OF SYSTEMS: Eye: no change in vision ENT: no sore throat Cardiac: No chest pain Pulmonary: no cough or SOB Abdomen: no vomiting, diarrhea, abdominal pain Musculoskeletal: no back pain Skin: no rash Neuro: no headache Constitutional: no fever : no urinary symptoms A comprehensive 10 point review of systems is otherwise negative aside from elements mentioned in the history of present illness. PAST MEDICAL HISTORY: History and physical dated 10/01/2017 includes coronary disease, peripheral vascular disease, COPD, cardiac stenting. Social history: here with his General Appearance: Alert and conversant, cooperative. Eyes: No scleral icterus. ENT, Mouth: Normal mucous membranes. Respiratory: Normal respiratory effort, breath sounds equal, lungs are clear to auscultation. Cardiovascular: Regular rate and rhythm. No murmur. Gastrointestinal: Abdomen is soft and non tender. Neurological: Alert, face symmetric, normal motor and sensory in extremities. Normal [id number] bilaterally and no pronator drift. Skin: Warm and dry, no rashes. Musculoskeletal: No peripheral edema. Psychiatric: Not agitated. Emergency Department course/MDM: It is unlikely the patient had a stroke. Differential includes but not limited to bradycardia, AFib, other malignant dysrhythmia, vasovagal episode. Plan for labs including troponin, recommended admission for cardiac monitoring. 1120: Labs discussed and recommended admission for monitoring but the patient refused. Discussion with the patient and his but he has clearly capacity to make decisions regarding his care and wants to leave because he"feels fine now."Understands the risks of leaving against my medical advice including but not limited to dysrhythmia, RI, recurrent syncope and injury, . Encouraged to return if he changes mind about inpatient care. expressed concern that the patient's sleep study showed he may need oxygen at home; discussed with Shad Worley will follow up with the patient tomorrow regarding the above issues including home oxygen. Smoking Status: Former smoker Constitutional: Initial Vital Signs Temperature (C) 36.8 C 04/09/18 09:51 Heart Rate 72 04/09/18 09:51 Respiratory Rate 16 04/09/18 09:51 Blood Pressure 164/76 H 04/09/18 09:51 O2 Sat (%) 93 04/09/18 09:51 O2 Delivery Mode Room Air Allergies/Adverse Reactions: lorazepam Allergy (Verified 04/09/18 09:48) Other-Enter Comments Home Medications: Medication Instructions Recorded Clopidogrel Bisulfate [Plavix (*)] 75 mg PO DAILY 03/03/12 Acetaminophen [Tylenol 325mg (*)] 650 mg PO BID 08/27/16 Albuterol [Proventil Inhaler HFA 1 - 2 puffs IH Q4H PRN 08/27/16 (*)] Aspirin EC [Aspirin EC 81 mg (*)] 81 mg PO HS 08/27/16 Atorvastatin Calcium [Lipitor 20 40 mg PO DAILY 08/27/16 mg (*)] Calcium Carbonate [Oyster Shell 500 mg PO DAILY 08/27/16 Calcium 500 mg (*)] Carvedilol [Coreg (*)] 12.5 mg PO BIDMEAL 08/27/16 Cholecalciferol Vit D3 [Vitamin D3 2,000 units PO DAILY 08/27/16 (*)] Cyanocobalamin [Vitamin B12 (*)] 5,000 mcg PO DAILY 08/27/16 Herbals/Supplements -Info Only 1 ea PO DAILY 08/27/16 Magnesium Oxide [Magnesium Oxide 400 mg PO DAILY 08/27/16 400 mg (*)] Pantoprazole Sodium [Protonix 40mg 40 mg PO DAILY #20 tab 11/29/16 (*)] Fluticasone/Salmeter 500/50Mcg 1 puffs IN BID 10/01/17 [Advair 500/50 (*)] Ipratropium/Albuterol [Duoneb (*)] 3 ml IN BID 10/01/17 Loratadine [Claritin 10 mg] 10 mg PO HS 10/01/17 Losartan/Hctz 50/12.5 [Hyzaar 1 tab PO DAILY 10/01/17 50/12.5MG (*)] Medical Decision Making - Diagnostics EKG Interpretation: 12-lead EKG interpreted by me; official reading is in trace master. My interpretation is sinus rhythm with left anterior fascicular block and old anteroseptal RI. Differential Diagnosis: Differential diagnosis considered for near syncope including but not limited to vasovagal syncope, arrhythmia, dehydration, and blood loss. - Data Points Laboratory Results: Laboratory Results 04/09/18 10:30 04/09/18 10:30 04/09/18 04/09/18 04/09/18 10:37 10:30 10:30 WBC 8.13 10^3/uL 10^3/uL (3.80-9.50) RBC 4.19 10^6/uL L 10^6/uL (4.40-6.38) Hgb 13.7 g/dL g/dL (13.7-17.5) Hct 39.9 % L % (40.0-51.0) MCV 95.2 fL fL (81.5-99.8) MCH 32.7 pg pg (27.9-34.1) MCHC 34.3 g/dL g/dL (32.4-36.7) RDW 12.6 % % (11.5-15.2) Plt Count 208 10^3/uL 10^3/uL (150-400) MPV 9.1 fL fL (8.7-11.7) Neut % (Auto) 75.3 % H % (39.3-74.2) Lymph % (Auto) 14.5 % L % (15.0-45.0) Finney % (Auto) 8.9 % % (4.5-13.0) Eos % (Auto) 0.6 % % (0.6-7.6) Baso % (Auto) 0.2 % L % (0.3-1.7) Nucleat RBC Rel Count 0.0 % % (0.0-0.2) Absolute Neuts (auto) 6.12 10^3/uL 10^3/uL (1.70-6.50) Absolute Lymphs (auto) 1.18 10^3/uL 10^3/uL (1.00-3.00) Absolute Monos (auto) 0.72 10^3/uL 10^3/uL (0.30-0.80) Absolute Eos (auto) 0.05 10^3/uL 10^3/uL (0.03-0.40) Absolute Basos (auto) 0.02 10^3/uL 10^3/uL (0.02-0.10) Absolute Nucleated RBC 0.00 10^3/uL 10^3/uL (0-0.01) Immature Gran % 0.5 % % (0.0-1.1) Immature Gran # 0.04 10^3/uL 10^3/uL (0.00-0.10) Sodium 141 mEq/L mEq/L (135-145) Potassium 3.9 mEq/L mEq/L (3.3-5.0) Chloride 101 mEq/L mEq/L (97-110) Carbon Dioxide 26 mEq/l mEq/l (22-31) Anion Gap 14 mEq/L mEq/L (8-16) BUN 29 mg/dL H mg/dL (7-23) Creatinine 0.7 mg/dL mg/dL (0.7-1.3) Estimated GFR > 60 Glucose 178 mg/dL H mg/dL (70-100) Calcium 9.7 mg/dL mg/dL (8.5-10.4) POC Troponin I 0.01 ng/mL ng/mL (0.00-0.08) Point of Care Test Results: Chemistry 04/09/18 10:37 POC Troponin I 0.01 ng/mL ng/mL (0.00-0.08) Departure - Departure Disposition: Home, Routine, Self-Care Clinical Impression: Near syncope Condition: Good Instructions: Near Syncope (ED) Referrals: Adolfo Kulkarni MD [Primary Care Provider] - As per Instructions
--- NOTE | 2018-04-09 10:13 | CPEKG ---
Heart Rate: 64 RR Interval: 938 P-R Interval: 136 QRSD Interval: 108 QT Interval: 412 QTC Interval: 425 P Witt: 52 QRS Witt: -48 T Wave Witt: 68 EKG Severity - ABNORMAL ECG - EKG Impression: SINUS RHYTHM EKG Impression: LEFT ANTERIOR FASCICULAR BLOCK EKG Impression: CONSIDER ANTEROSEPTAL INFARCT Electronically Signed By: Osmani Bradford 09-Apr-2018 10:47:19
[2018-04-09 10:47] LABS: PLATELET COUNT 208 10^3/uL (150-400)
[2018-04-09 11:12] VITALS: BP 138/81
== END 2018-04-09 11:41 | disposition home or self-care (01) ==
DX: R55 Syncope and collapse (principal); J44.9 Chronic obstructive pulmonary disease, unspecified; I25.10 Atherosclerotic heart disease of native coronary artery without angina pectoris; Z79.82 Long term (current) use of aspirin; Z87.891 Personal history of nicotine dependence; Z95.5 Presence of coronary angioplasty implant and graft
CPT/HCPCS: 84484-PO

== ENCOUNTER 2018-05-22 14:11 | Emergency (ER) | payer OTHER ==
--- NOTE | 2018-05-22 14:46 | EDPHY ---
H & P Stated Complaint: chronic BACK PAIN seen at [facility] Time Seen by Provider: 05/22/18 14:46 HPI/ROS: CHIEF COMPLAINT: Acute exacerbation of chronic back pain HISTORY OF PRESENT ILLNESS: The patient presents the ED with an acute exacerbation of chronic right back pain. The patient reportedly is under the care of a back pain specialist [facility]. He has undergone injections for arthritis with minimal improvement. His last injection was approximately a month ago. The patient denies any fever. He denies any acute numbness or weakness in his legs. He has chronic gait instability. The patient reports that the pain is greatest along the right side of his spine. He denies any abdominal pain, chest pain or difficulty breathing. REVIEW OF SYSTEMS: A comprehensive 10 point review of systems is otherwise negative aside from elements mentioned in the history of present illness. Source: Patient - Personal History Current Tetanus/Diphtheria Vaccine: Unsure Current Tetanus Diphtheria and Acellular Pertussis (TDAP): Unsure Tetanus Vaccine Date: 3 yrs ago - Medical/Surgical History Hx Asthma: No Hx Chronic Respiratory Disease: Yes Hx Diabetes: No Hx Cardiac Disease: Yes Hx Renal Disease: No Hx Cirrhosis: No Hx Alcoholism: No Hx HIV/AIDS: No Hx Splenectomy or Spleen Trauma: No Other PMH: CAD, PVD, AAA, COPD, CARDIAC STENTS l leg stents Dr. Ga at [facility] - Social History Smoking Status: Former smoker - Physical Exam Exam: General Appearance: Elderly male, mild discomfort Eyes: Pupils equal and round no pallor or injection ENT, Mouth: Mucous membranes moist Respiratory: There are no retractions, lungs are clear to auscultation Cardiovascular: Regular rate and rhythm Gastrointestinal: Abdomen is soft and nontender, no masses, bowel sounds normal Neurological: 5/5 strength all 4 extremities, sensation intact to light touch bilateral lower extremities Skin: Warm and dry, no rashes Musculoskeletal: Lumbar scoliosis noted, tenderness to palpation along the right paraspinal musculature Extremities: symmetrical, full range of motion Constitutional: Initial Vital Signs Temperature (C) 36.6 C 05/22/18 14:15 Heart Rate 68 05/22/18 14:15 Respiratory Rate 16 05/22/18 14:15 Blood Pressure 151/81 H 05/22/18 14:15 O2 Sat (%) 94 05/22/18 14:15 O2 Delivery Mode Room Air Allergies/Adverse Reactions: lorazepam Allergy (Verified 04/09/18 09:48) Other-Enter Comments Home Medications: Medication Instructions Recorded Clopidogrel Bisulfate [Plavix (*)] 75 mg PO DAILY 03/03/12 Acetaminophen [Tylenol 325mg (*)] 650 mg PO BID 08/27/16 Albuterol [Proventil Inhaler HFA 1 - 2 puffs IH Q4H PRN 08/27/16 (*)] Aspirin EC [Aspirin EC 81 mg (*)] 81 mg PO HS 08/27/16 Atorvastatin Calcium [Lipitor 20 40 mg PO DAILY 08/27/16 mg (*)] Calcium Carbonate [Oyster Shell 500 mg PO DAILY 08/27/16 Calcium 500 mg (*)] Carvedilol [Coreg (*)] 12.5 mg PO BIDMEAL 08/27/16 Cholecalciferol Vit D3 [Vitamin D3 2,000 units PO DAILY 08/27/16 (*)] Cyanocobalamin [Vitamin B12 (*)] 5,000 mcg PO DAILY 08/27/16 Herbals/Supplements -Info Only 1 ea PO DAILY 08/27/16 Magnesium Oxide [Magnesium Oxide 400 mg PO DAILY 08/27/16 400 mg (*)] Pantoprazole Sodium [Protonix 40mg 40 mg PO DAILY #20 tab 11/29/16 (*)] Fluticasone/Salmeter 500/50Mcg 1 puffs IN BID 10/01/17 [Advair 500/50 (*)] Ipratropium/Albuterol [Duoneb (*)] 3 ml IN BID 10/01/17 Loratadine [Claritin 10 mg] 10 mg PO HS 10/01/17 Losartan/Hctz 50/12.5 [Hyzaar 1 tab PO DAILY 10/01/17 50/12.5MG (*)] Medical Decision Making - Diagnostics Imaging Results: Imaging Impressions Lumbar Spine X-Ray 05/22/18 15:14 Impression: 1. No acute fracture identified. 2. Progressive degenerative listhesis is present at L3-L4, and related to the patient's moderate scoliosis. 3. Stable abdominal aortic aneurysm since 2012. ED Course/Re-evaluation: The patient presents the ED for acute exacerbation of chronic back pain. The patient has fairly significant muscular tenderness noted on exam. He has no distal neurologic weakness or numbness appreciated. The patient has intact pulses noted bilaterally. Patient did have a remote history of fall several weeks ago. X-rays demonstrate no evidence of an acute fracture and chronic scoliosis with the DJD at L3-L4. The patient will be prescribed a short course of prednisone. The patient will also be advised to use tramadol as needed for management of his pain. The patient should follow up with his regular physician Dr. Kulkarni in his spine surgeon for any ongoing symptoms. He will be discharged home with customary aftercare instructions and return precautions. The patient was given a lidocaine patch in the emergency department. He will be given a prescription for this to go home with. Differential Diagnosis: Differential diagnosis considered includes myofascial strain, compression fracture, sciatica - Data Points Medications Given: Discontinued Medications Miscellaneous Medication (Icy Hot Lidocaine/Menthol 4%/1% Patch) 1 patch TD EDNOW ONE Stop: 05/22/18 15:14 Last Admin: 05/22/18 15:32 Dose: 1 patch Miscellaneous Medication (Icy Hot Lidocaine/Menthol 4%/1% Patch) 1 patch TD EDNOW ONE Stop: 05/22/18 15:27 Last Admin: 05/22/18 15:32 Dose: 1 patch Departure - Departure Disposition: Home, Routine, Self-Care Clinical Impression: Low back pain Condition: Good Instructions: Low Back Strain (ED) Additional Instructions: 1. Take prednisone as directed for next 5 days. 2. Tramadol as needed for pain. 3. Use lidocaine patch as directed. Apply patch for 12 hr then remove for 12 hr. You can repeat as needed. Referrals: Adolfo Kulkarni MD [Primary Care Provider] - As per Instructions
[2018-05-22] MEDS ORDERED: LIDOCAINE 4%/MENTHOL 1% PATCH TD ONE ×3 (15:13→15:26)
[2018-05-22 16:34] VITALS: BP 170/105
[2018-05-22] MEDS ORDERED: PATCH REMOVAL 1 EA PATCH TD SCH ×2 (21:00)
== END 2018-05-22 16:34 | disposition home or self-care (01) ==
DX: M54.5 Low back pain (principal)

== ENCOUNTER 2018-06-27 13:40 | Emergency (ER) | payer OTHER ==
--- NOTE | 2018-06-27 13:59 | EDPHY ---
H & P Stated Complaint: CONTINUES TO FALL/SEEN FREQ FOR SAME BACK LEGS GIVING OUT Time Seen by Provider: 06/27/18 13:58 HPI/ROS: CHIEF COMPLAINT: Weakness, falling, increasing back pain HISTORY OF PRESENT ILLNESS: The patient presents to the ED with increasing weakness involving both of his legs, history of falling multiple times over the past week and increasing pain in his back both in the midline and right sacroiliac joint. The patient has been dealing with this problem chronically for the past several months. The patient was initially treated with high dose prednisone for 5 days with fairly significant improvement of his symptoms. The patient reportedly developed recurrent symptoms after stopping prednisone. He was placed back on 10 mg of prednisone daily which he has been taken for the past 2 weeks without improvement of his symptoms. The patient had previously received care at [facility] but has been told by those providers per his report that they have nothing else to offer him. Patient denies any bowel or bladder dysfunction. The patient describes global weakness which occurs intermittently which seems to be mostly affecting his hip flexors. The patient did not strike his head or lose consciousness. He denies any additional acute complaints. REVIEW OF SYSTEMS: A comprehensive 10 point review of systems is otherwise negative aside from elements mentioned in the history of present illness. Source: Patient Exam Limitations: No limitations - Personal History Current Tetanus Diphtheria and Acellular Pertussis (TDAP): Yes Tetanus Vaccine Date: 3 yrs ago - Medical/Surgical History Hx Asthma: No Hx Chronic Respiratory Disease: Yes Hx Diabetes: No Hx Cardiac Disease: Yes Hx Renal Disease: No Hx Cirrhosis: No Hx Alcoholism: No Hx HIV/AIDS: No Hx Splenectomy or Spleen Trauma: No Other PMH: CAD, PVD, AAA, COPD, CARDIAC STENTS l leg stents Dr. Ga at [facility] - Social History Smoking Status: Former smoker - Physical Exam Exam: General Appearance: Alert, no distress Eyes: Pupils equal and round no pallor or injection ENT, Mouth: Mucous membranes moist Respiratory: There are no retractions, lungs are clear to auscultation Cardiovascular: Regular rate and rhythm Gastrointestinal: Abdomen is soft and nontender, no masses, bowel sounds normal Neurological: 5/5 strength bilateral lower extremities, normal sensory exam, DTRs diminished bilaterally Skin: Warm and dry, no rashes Musculoskeletal: Tenderness to palpation noted throughout the lower lumbar musculature Extremities: symmetrical, full range of motion Constitutional: Initial Vital Signs Temperature (C) 37 C 06/27/18 13:47 Heart Rate 61 06/27/18 13:47 Respiratory Rate 18 06/27/18 13:47 Blood Pressure 157/76 H 06/27/18 13:47 O2 Sat (%) 94 06/27/18 13:47 O2 Delivery Mode Room Air Allergies/Adverse Reactions: lorazepam Allergy (Verified 06/27/18 13:47) Other-Enter Comments Home Medications: Medication Instructions Recorded Clopidogrel Bisulfate [Plavix (*)] 75 mg PO DAILY 03/03/12 Acetaminophen [Tylenol 325mg (*)] 650 mg PO BID 08/27/16 Albuterol [Proventil Inhaler HFA 1 - 2 puffs IH Q4H PRN 08/27/16 (*)] Aspirin EC [Aspirin EC 81 mg (*)] 81 mg PO HS 08/27/16 Atorvastatin Calcium [Lipitor 20 40 mg PO DAILY 08/27/16 mg (*)] Calcium Carbonate [Oyster Shell 500 mg PO DAILY 08/27/16 Calcium 500 mg (*)] Carvedilol [Coreg (*)] 12.5 mg PO BIDMEAL 08/27/16 Cholecalciferol Vit D3 [Vitamin D3 2,000 units PO DAILY 08/27/16 (*)] Cyanocobalamin [Vitamin B12 (*)] 5,000 mcg PO DAILY 08/27/16 Herbals/Supplements -Info Only 1 ea PO DAILY 08/27/16 Magnesium Oxide [Magnesium Oxide 400 mg PO DAILY 08/27/16 400 mg (*)] Pantoprazole Sodium [Protonix 40mg 40 mg PO DAILY #20 tab 11/29/16 (*)] Fluticasone/Salmeter 500/50Mcg 1 puffs IN BID 10/01/17 [Advair 500/50 (*)] Ipratropium/Albuterol [Duoneb (*)] 3 ml IN BID 10/01/17 Loratadine [Claritin 10 mg] 10 mg PO HS 10/01/17 Losartan/Hctz 50/12.5 [Hyzaar 1 tab PO DAILY 10/01/17 50/12.5MG (*)] Lidocaine [Lidoderm] 1 each TP AD PRN #15 adh..patch 05/22/18 predniSONE [prednisone 20mg (RX)] 3 tab PO DAILY #15 tab 05/22/18 traMADol [Ultram 50 mg (*)] 50 mg PO BID PRN #30 tab 05/22/18 oxyCODONE/APAP 5/325 [Percocet] 1 tab PO Q4-6PRN PRN #11 tab 05/29/18 predniSONE [prednisone 20mg (RX)] 3 tab PO DAILY #15 tab 06/27/18 Medical Decision Making - Diagnostics Imaging Results: Imaging Impressions Lumbar Spine MRI 06/27/18 14:26 Impression: 1. L5-S1: Severe bilateral neural foraminal stenosis secondary to severe degenerative disk disease, osteophytes, and bilateral facet arthropathy. 2. L4-L5: Severe left neural foraminal stenosis and moderate central canal stenosis secondary to severe degenerative disk disease, circumferential osteophytes, and severe bilateral facet arthropathy. 3. Moderate central canal stenosis at L3-L4 and L2-L3 secondary to degenerative disk disease and facet arthropathy. 4. Moderate levoscoliosis. 5. Infrarenal abdominal aortic aneurysm 4.1 cm. 6. Please see above findings at specific disk levels. Findings and recommendations discussed with Emergency Department physician, Thomas Colón M.D., at 1600 hours, on June 27, 2018. Final report concurs with initial preliminary interpretation. ED Course/Re-evaluation: The patient presents to the ED with complaints of intermittent leg weakness and increasing back pain. The patient certainly has a component of sacroiliac pain. He also had some midline pain. The patient was noted to be intact neurologically without evidence of detectable weakness. Given the patient's history of weakness and failed outpatient therapy an MRI of the lumbar spine was obtained. 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 He does have neuroforaminal stenosis noted bilaterally in the lower lumbar spine. The patient will be given additional dose of 60 mg of prednisone for the next 5 days. I have referred the patient to our on-call spine surgeon Dr. Nash Forbes for further evaluation and management. The patient will be discharged home with customary aftercare instructions and return precautions. Differential Diagnosis: Differential diagnosis considered includes sciatica, central canal stenosis, neural foraminal stenosis, myofascial strain, sacroiliitis Departure - Departure Disposition: Home, Routine, Self-Care Clinical Impression: Low back pain Condition: Good Instructions: Back Pain (ED) Additional Instructions: 1. Your MRI does demonstrate some evidence of degenerative changes in your spine which may be responsible for your back pain. 2. Take prednisone as directed for next 5 days. 3. Please schedule a follow-up appointment with a spine surgeon you have been referred to for further evaluation and a review of your MRI Referrals: Adolfo Kulkarni MD [Primary Care Provider] - As per Instructions Nash Forbes MD [Medical Doctor] - As per Instructions Prescriptions: predniSONE [prednisone 20mg (RX)] 3 tab PO DAILY #15 tab
[2018-06-27 16:37] VITALS: BP 189/105
== END 2018-06-27 16:34 | disposition home or self-care (01) ==
DX: M54.5 Low back pain (principal); R53.1 Weakness; M48.07 Spinal stenosis, lumbosacral region; M48.061 Spinal stenosis, lumbar region without neurogenic claudication; I71.4 Abdominal aortic aneurysm, without rupture; R29.6 Repeated falls

== ENCOUNTER 2018-07-05 12:16 | Emergency (ER) | payer OTHER ==
--- NOTE | 2018-07-05 12:26 | EDPHY ---
H & P Stated Complaint: swollen arm concerned about blood clot-on blood thinners Time Seen by Provider: 07/05/18 12:22 HPI/ROS: HPI: This is a 77-year-old male who presents with Chief Complaint: swollen arm concerned about blood clot-on blood thinners Location: Left upper arm Quality: Skin color changes, swelling Duration: 24 hr Signs and Symptoms: No bleeding, no radiation, no numbness, no weakness, no tingling, no incontinence, no decreased range of motion, no pain, no fever Timing: Acute Severity: [id number] Context: Patient is right-hand dominant, presents accompanied by his , with concerns of left upper arm skin color changes and swelling over the last 24 hr. Patient takes aspirin and Plavix for coronary artery disease. Patient also has a history of lumbar degenerative disc disease that is pretty significant with foraminal stenosis. He has been on 2 courses of high-dose steroids over the last month. Patient reports that he constantly hit his left elbow and causes that to bleed. He currently has a Band-Aid over scabbed area that has been present for over 6 months. Denies any paresthesias, warmth, drainage, weakness. Patient and were concerned that he may have a blood clot in his arm. Modifying Factors: None Comment: ROS: A comprehensive 10 system review of systems is otherwise negative aside from elements mentioned in the history of present illness. MEDICAL/SURGICAL/SOCIAL HISTORY: Medical history: CAD, PVD, AAA, COPD, CARDIAC STENTS l leg stents Dr. Ga at [facility] Surgical history: Denies Social history: , retired. CONSTITUTIONAL: Extremely polite and cooperative elderly white male, awake and alert, no obvious distress HEENT: Atraumatic and normocephalic. NECK: supple Cardiovascular: Normal S1/S2, regular rate, regular rhythm, without murmur rub or gallop. PULMONARY/CHEST: Symmetrical and nontender. no crepitus. Clear to auscultation bilaterally. Good air movement. No accessory muscle usage. ABDOMEN: Soft, nondistended, nontender, no ecchymosis. PELVIC: no pain with rocking; bilateral hips flexion 125 degrees, extension 30 degrees, with no pain internal rotation and no pain external rotation. BACK: No midline tenderness, no paraspinous spasm, deep tendon reflexes 2/2, no pain with straight leg raise, No foot drop. Achilles reflexes are equal bilaterally. Able to walk on heels and toes without difficulty. EXTREMITIES: 2/2 pulses, strength 5/5, DIP/PIP/MCP flexion/extension intact with good light touch sensation. no deformities, no clubbing, no cyanosis or edema. NEUROLOGICAL: no focal neuro deficits. GCS 15. Light touch sensation intact. SKIN: Warm and dry, scattered ecchymosis noted on bilateral upper extremities. Left bicep is twice the size of the right bicep. There is a fairly significant hematoma near the antecubital fossa. Thin. Tattoos covering torso. No fluctuance. no erythema. no rash. Good capillary refill. Source: Patient, Family Exam Limitations: No limitations - Personal History Current Tetanus/Diphtheria Vaccine: Yes Current Tetanus Diphtheria and Acellular Pertussis (TDAP): Yes Tetanus Vaccine Date: 3 yrs ago - Medical/Surgical History Hx Asthma: No Hx Chronic Respiratory Disease: Yes Hx Diabetes: No Hx Cardiac Disease: Yes Hx Renal Disease: No Hx Cirrhosis: No Hx Alcoholism: No Hx HIV/AIDS: No Hx Splenectomy or Spleen Trauma: No Other PMH: CAD, PVD, AAA, COPD, CARDIAC STENTS l leg stents Dr. Ga at [facility] - Social History Smoking Status: Former smoker Constitutional: Initial Vital Signs Temperature (C) 36.5 C 07/05/18 12:17 Heart Rate 73 07/05/18 12:17 Respiratory Rate 16 07/05/18 12:17 Blood Pressure 139/84 H 07/05/18 12:17 O2 Sat (%) 93 07/05/18 12:17 O2 Delivery Mode Room Air Allergies/Adverse Reactions: lorazepam Allergy (Verified 06/27/18 13:47) Other-Enter Comments Home Medications: Medication Instructions Recorded Clopidogrel Bisulfate [Plavix (*)] 75 mg PO DAILY 03/03/12 Acetaminophen [Tylenol 325mg (*)] 650 mg PO BID 08/27/16 Albuterol [Proventil Inhaler HFA 1 - 2 puffs IH Q4H PRN 08/27/16 (*)] Aspirin EC [Aspirin EC 81 mg (*)] 81 mg PO HS 08/27/16 Atorvastatin Calcium [Lipitor 20 40 mg PO DAILY 08/27/16 mg (*)] Calcium Carbonate [Oyster Shell 500 mg PO DAILY 08/27/16 Calcium 500 mg (*)] Carvedilol [Coreg (*)] 12.5 mg PO BIDMEAL 08/27/16 Cholecalciferol Vit D3 [Vitamin D3 2,000 units PO DAILY 08/27/16 (*)] Cyanocobalamin [Vitamin B12 (*)] 5,000 mcg PO DAILY 08/27/16 Herbals/Supplements -Info Only 1 ea PO DAILY 08/27/16 Magnesium Oxide [Magnesium Oxide 400 mg PO DAILY 08/27/16 400 mg (*)] Pantoprazole Sodium [Protonix 40mg 40 mg PO DAILY #20 tab 11/29/16 (*)] Fluticasone/Salmeter 500/50Mcg 1 puffs IN BID 10/01/17 [Advair 500/50 (*)] Ipratropium/Albuterol [Duoneb (*)] 3 ml IN BID 10/01/17 Loratadine [Claritin 10 mg] 10 mg PO HS 10/01/17 Losartan/Hctz 50/12.5 [Hyzaar 1 tab PO DAILY 10/01/17 50/12.5MG (*)] Lidocaine [Lidoderm] 1 each TP AD PRN #15 adh..patch 05/22/18 predniSONE [prednisone 20mg (RX)] 3 tab PO DAILY #15 tab 05/22/18 traMADol [Ultram 50 mg (*)] 50 mg PO BID PRN #30 tab 05/22/18 oxyCODONE/APAP 5/325 [Percocet] 1 tab PO Q4-6PRN PRN #11 tab 05/29/18 predniSONE [prednisone 20mg (RX)] 3 tab PO DAILY #15 tab 06/27/18 Medical Decision Making - Diagnostics Imaging Results: Imaging Impressions Extremity Venous Study 07/05/18 12:26 Impression: Negative for left upper extremity DVT. Findings and recommendations discussed with Keila Carrasco at 1339 hour, 2017. ED Course/Re-evaluation: Labs and left upper extremity ultrasound ordered 1309: Labs reviewed. Leukocytosis noted likely due to recent steroid use. No signs of anemia/thrombocytopenia/coagulopathy. 1340: Called by Dr. Rodarte, who advised that ultrasound shows no deep venous thrombosis, superficial thrombophlebitis. Reassurance provided to the patient with local wound care including warm compresses. No signs of neurovascular compromise/tenting of skin/compartment syndrome/ extremities and joints examined above and below area of concern and are neurovascularly intact/cellulitis/abscess. This patient was seen under the supervision of my secondary supervising physician. I evaluated care for this patient independently. Discussed this patient with Dr. Zarate. Differential Diagnosis: Arm swelling including but not limited to hypoalbuminemia, cellulitis, hematoma , coagulopathy, chronic venous stasis and DVT. - Data Points Laboratory Results: Laboratory Results 07/05/18 12:35 07/05/18 07/05/18 12:35 12:35 WBC 15.40 10^3/uL H 10^3/uL (3.80-9.50) RBC 4.20 10^6/uL L 10^6/uL (4.40-6.38) Hgb 14.0 g/dL g/dL (13.7-17.5) Hct 39.5 % L % (40.0-51.0) MCV 94.0 fL fL (81.5-99.8) MCH 33.3 pg pg (27.9-34.1) MCHC 35.4 g/dL g/dL (32.4-36.7) RDW 12.3 % % (11.5-15.2) Plt Count 212 10^3/uL 10^3/uL (150-400) MPV 9.2 fL fL (8.7-11.7) Neut % (Auto) 90.4 % H % (39.3-74.2) Lymph % (Auto) 3.6 % L % (15.0-45.0) Bibb % (Auto) 5.1 % % (4.5-13.0) Eos % (Auto) 0.1 % L % (0.6-7.6) Baso % (Auto) 0.1 % L % (0.3-1.7) Nucleat RBC Rel Count 0.0 % % (0.0-0.2) Absolute Neuts (auto) 13.92 10^3/uL H 10^3/uL (1.70-6.50) Absolute Lymphs (auto) 0.55 10^3/uL L 10^3/uL (1.00-3.00) Absolute Monos (auto) 0.79 10^3/uL 10^3/uL (0.30-0.80) Absolute Eos (auto) 0.02 10^3/uL L 10^3/uL (0.03-0.40) Absolute Basos (auto) 0.02 10^3/uL 10^3/uL (0.02-0.10) Absolute Nucleated RBC 0.00 10^3/uL 10^3/uL (0-0.01) Immature Gran % 0.7 % % (0.0-1.1) Immature Gran # 0.11 10^3/uL H 10^3/uL (0.00-0.10) RBC/WBC/PLT Morphology TNP Platelet Estimate TNP PT 13.9 SEC SEC (12.0-15.0) INR 1.05 (0.83-1.16) APTT 24.6 SEC SEC (23.0-38.0) Departure - Departure Disposition: Home, Routine, Self-Care Clinical Impression: Traumatic hematoma of left forearm Qualifiers: Encounter type: initial encounter Qualified Code(s): S50.12XA - Contusion of left forearm, initial encounter Condition: Good Instructions: Hematoma (ED) Additional Instructions: Apply warm compresses for 30 minutes at a time; 2-3 times per day for the next 1 -2 days. Follow up with PCP in 5-7 days if no improvement in symptoms. Referrals: Adolfo Kulkarni MD [Primary Care Provider] - 5-7 days, if not improved
[2018-07-05 12:50] LABS: PLATELET COUNT 212 10^3/uL (150-400)
[2018-07-05 12:58] LABS: INR 1.05 (0.83-1.16); PROTIME(PATIENT) 13.9 SEC (12.0-15.0)
[2018-07-05 13:44] VITALS: BP 135/78
== END 2018-07-05 13:47 | disposition home or self-care (01) ==
DX: M79.89 Other specified soft tissue disorders (principal); S50.12XA Contusion of left forearm, initial encounter; I25.10 Atherosclerotic heart disease of native coronary artery without angina pectoris; I71.4 Abdominal aortic aneurysm, without rupture; J44.9 Chronic obstructive pulmonary disease, unspecified; Z95.2 Presence of prosthetic heart valve

== ENCOUNTER 2018-11-24 09:53 | Emergency (ER) | payer OTHER ==
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
[2018-11-24] MEDS ORDERED: oxyCODONE IR 5 MG TAB PO ONE (10:10)
[2018-11-24 10:54] VITALS: BP 129/70
== END 2018-11-24 11:00 | disposition home or self-care (01) ==
DX: S40.022A Contusion of left upper arm, initial encounter (principal); W20.8XXA Other cause of strike by thrown, projected or falling object, initial encounter; Y93.H9 Activity, other involving exterior property and land maintenance, building and construction; Y92.810 Car as the place of occurrence of the external cause; I25.10 Atherosclerotic heart disease of native coronary artery without angina pectoris; I73.9 Peripheral vascular disease, unspecified; J44.9 Chronic obstructive pulmonary disease, unspecified; Z87.891 Personal history of nicotine dependence; Z95.5 Presence of coronary angioplasty implant and graft

== ENCOUNTER 2019-01-27 09:40 | Emergency (ER) | payer OTHER ==
[2019-01-27] MEDS ORDERED: IPRATROPIUM/ALBUTEROL 3 ML DEYVIAL ONE (09:55)
[2019-01-27] MEDS ORDERED: IPRATROPIUM/ALBUTEROL 3 ML DEYVIAL IH ONE ×2 (10:10→10:36)
--- NOTE | 2019-01-27 10:30 | EDPHY ---
H & P Stated Complaint: SOB/cough up blood Time Seen by Provider: 01/27/19 10:30 - Personal History Current Tetanus/Diphtheria Vaccine: Yes Tetanus Vaccine Date: 3 yrs ago - Medical/Surgical History Hx Asthma: No Hx Chronic Respiratory Disease: Yes Hx Diabetes: No Hx Cardiac Disease: Yes Hx Renal Disease: No Hx Cirrhosis: No Hx Alcoholism: No Hx HIV/AIDS: No Hx Splenectomy or Spleen Trauma: No Other PMH: CAD, PVD, AAA, COPD, CARDIAC STENTS l leg stents Dr. Ga at [facility] - Social History Smoking Status: Former smoker Constitutional: Initial Vital Signs Temperature (C) 36.6 C 01/27/19 09:51 Heart Rate 62 01/27/19 09:51 Respiratory Rate 18 01/27/19 09:51 Blood Pressure 155/70 H 01/27/19 09:51 O2 Sat (%) 95 01/27/19 09:51 O2 Delivery Mode Room Air Allergies/Adverse Reactions: lorazepam Allergy (Verified 01/27/19 09:54) Other-Enter Comments Home Medications: Medication Instructions Recorded Clopidogrel Bisulfate [Plavix (*)] 75 mg PO DAILY 03/03/12 Acetaminophen [Tylenol 325mg (*)] 650 mg PO BID 08/27/16 Albuterol [Proventil Inhaler HFA 1 - 2 puffs IH Q4H PRN 08/27/16 (*)] Aspirin EC [Aspirin EC 81 mg (*)] 81 mg PO HS 08/27/16 Atorvastatin Calcium [Lipitor 20 40 mg PO DAILY 08/27/16 mg (*)] Calcium Carbonate [Oyster Shell 500 mg PO DAILY 08/27/16 Calcium 500 mg (*)] Carvedilol [Coreg (*)] 12.5 mg PO BIDMEAL 08/27/16 Cholecalciferol Vit D3 [Vitamin D3 2,000 units PO DAILY 08/27/16 (*)] Cyanocobalamin [Vitamin B12 (*)] 5,000 mcg PO DAILY 08/27/16 Herbals/Supplements -Info Only 1 ea PO DAILY 08/27/16 Magnesium Oxide [Magnesium Oxide 400 mg PO DAILY 08/27/16 400 mg (*)] Pantoprazole Sodium [Protonix 40mg 40 mg PO DAILY #20 tab 11/29/16 (*)] Fluticasone/Salmeter 500/50Mcg 1 puffs IN BID 10/01/17 [Advair 500/50 (*)] Ipratropium/Albuterol [Duoneb (*)] 3 ml IN BID 10/01/17 Loratadine [Claritin 10 mg] 10 mg PO HS 10/01/17 Losartan/Hctz 50/12.5 [Hyzaar 1 tab PO DAILY 10/01/17 50/12.5MG (*)] Lidocaine [Lidoderm] 1 each TP AD PRN #15 adh..patch 05/22/18 predniSONE [prednisone 20mg (RX)] 3 tab PO DAILY #15 tab 05/22/18 traMADol [Ultram 50 mg (*)] 50 mg PO BID PRN #30 tab 05/22/18 oxyCODONE/APAP 5/325 [Percocet] 1 tab PO Q4-6PRN PRN #11 tab 05/29/18 predniSONE [prednisone 20mg (RX)] 3 tab PO DAILY #15 tab 06/27/18 Azithromycin [Zithromax] 250 mg PO DAILY #6 tab 01/27/19 methylPREDNISolone [Medrol Dose 1 each PO AD #1 ea 01/27/19 Curtis] Medical Decision Making - Diagnostics Imaging: I viewed and interpreted images myself ED Course/Re-evaluation: CHIEF COMPLAINT: COPD exacerbation HISTORY OF PRESENT ILLNESS: The patient is an anticoagulated (Plavix) 78 y/o male with a history of COPD, AAA, and cardiac stents complaining of a cough associated with blood last night. The patient took 20mg prednisone which did not alleviate his symptoms. As his symptoms have not improved, he decided to present to the ER. No fever, headache, body aches, lightheadedness, chest pain, heart palpitations, abdominal pain, urinary or bowel complaints, numbness, paresthesias. REVIEW OF SYSTEMS: A comprehensive 10 system review of systems is otherwise negative aside from elements mentioned in the history of present illness and medical decision making. PHYSICAL EXAM: HR, BP, O2 Sat, RR. Temp noted General Appearance: Alert, well hydrated, appropriate, and non-toxic appearing. Head: Atraumatic without scalp tenderness or obvious injury Eyes: Pupils equal, round, reactive to light and accommodation, EOMI, no trauma , no injection. Ears: Clear bilaterally, no perforation, normal landmarks Nose: Atraumatic, no rhinorrhea, clear. Throat: There is no erythema or exudates, no lesions, normal tonsils, mucus membranes moist. Neck: Supple, 2+ carotid upstroke, nontender, no lymphadenopathy. Respiratory: End-expiratory wheezes, prolonged expiratory phase, diffuse rhonchi , and no focal decrease. No retractions, no distress, and no accessory muscle use. Cardiovascular: Regular rate and rhythm, no murmurs, rubs, or gallops. Bilateral carotid, radial, dorsalis pedis, and posterior tibial pulses intact. Good capillary refill all extremities. Gastrointestinal: Abdomen is soft, nontender, non-distended, no masses, no rebound, no guarding, no peritoneal signs. Musculoskeletal: Normal active ROM of all extremities, atraumatic. Neurological: Alert, appropriate, and interactive. The patient has normal DTRs and non-focal cranial nerves, motor, sensory, and cerebellar exam. Skin: No rashes, good turgor, no nodules on palpation. Past medical history: CAD, PVD, AAA, COPD Past surgical history: Cardiac stents Family history: Denies Social history: at bedside, retired, lives in [place] DIAGNOSTICS/PROCEDURES/CRITICAL CARE TIME: Chest x-ray: Bronchitis, no signs of pneumonia. DIFFERENTIAL DIAGNOSIS: The differential diagnosis for the patient's shortness of breath included but was not limited to pneumonia, myocardial infarction, acute mountain sickness, high altitude pulmonary edema, congestive heart failure, and pulmonary embolus. MEDICAL DECISION MAKING: The patient is an anticoagulated (Plavix) 78 y/o male with a history of COPD, AAA, and cardiac stents presenting with a worsening cough associated with blood last night. The patient took 20mg prednisone which did not alleviate his symptoms. On exam he has end-expiratory wheezes, prolonged expiratory phase, diffuse rhonchi, and no focal decrease. He is not hypoxemic. Chest x-ray ordered ; DuoNeb, albuterol inhaler, and additional 40mg PO Prednisone administered. 1107: I reviewed patient's chest x-ray which reveals bronchitis. No sign of pneumonia. 1110: Reassessed patient and discussed imaging findings. He is feeling better after medication. I have prescribed him Z-pack for the bronchitis and a Medrol Dosepak for his COPD. 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 Return precautions provided; patient is comfortable with this plan. - Data Points Medications Given: Discontinued Medications Albuterol/Ipratropium (Duoneb) 3 ml IH EDNOW ONE Stop: 01/27/19 10:11 Last Admin: 01/27/19 10:15 Dose: 3 ml Albuterol/Ipratropium (Duoneb) 3 ml IH EDNOW ONE Stop: 01/27/19 10:37 Last Admin: 01/27/19 10:45 Dose: Not Given Prednisone (Prednisone) 40 mg PO EDNOW ONE Stop: 01/27/19 10:37 Last Admin: 01/27/19 10:58 Dose: 40 mg Departure - Departure Disposition: Home, Routine, Self-Care Clinical Impression: Acute bronchitis Qualifiers: Bronchitis organism: other organism Qualified Code(s): J20.8 - Acute bronchitis due to other specified organisms Condition: Good Instructions: Acute Bronchitis (ED) Additional Instructions: 1. Take a Z-pack as prescribed. 2. Take the Medrol Dosepak as prescribed. 3. Follow-up with your primary doctor or combat rifle crewmember within 72 hours. 4. Return to the Emergency Department for fever, chest pain, shortness of breath , increasing pain or other worsening of condition. 5. Use supplemental O2 if you feel short of breath. Referrals: Adolfo Kulkarni MD [Primary Care Provider] - As per Instructions Prescriptions: Azithromycin [Zithromax] 250 mg PO DAILY #6 tab methylPREDNISolone [Medrol Dose Curtis] 1 each PO AD #1 ea Report Scribed for: Levy Jurado Report Scribed by: Neva Lindsay Date of Report: 01/27/19 Time of Report: 10:31
[2019-01-27] MEDS ORDERED: predniSONE 20 MG TAB PO ONE (10:36)
[2019-01-27 11:26] VITALS: BP 128/100
== END 2019-01-27 11:24 | disposition home or self-care (01) ==
DX: J20.8 Acute bronchitis due to other specified organisms (principal); Z87.891 Personal history of nicotine dependence
CPT/HCPCS: 71046; 99284; J7512

== ENCOUNTER 2019-02-08 15:18 | Emergency (ER) | payer OTHER ==
[2019-02-08 16:30] LABS: PLATELET COUNT 172 10^3/uL (150-400)
--- NOTE | 2019-02-08 16:44 | EDPHY ---
H & P Stated Complaint: "Just don't feel well", cough, weakness, fatigue Time Seen by Provider: 02/08/19 16:00 HPI/ROS: CHIEF COMPLAINT: Ongoing cough, fatigue and weakness HISTORY OF PRESENT ILLNESS: The patient presents the ED with complaints of an ongoing cough, fatigue and weakness. The patient had been in the emergency department approximately 10 days ago and treated with prednisone and steroids. He was on prednisone for approximately 5 days. He initially did have some improvement of his symptoms however is had worsening symptoms over the past several days. The patient denies fever, abdominal pain, vomiting or diarrhea. The patient denies any headache, neck stiffness or acute neurologic symptoms. REVIEW OF SYSTEMS: A comprehensive 10 point review of systems is otherwise negative aside from elements mentioned in the history of present illness. Source: Patient - Personal History Current Tetanus/Diphtheria Vaccine: Yes Current Tetanus Diphtheria and Acellular Pertussis (TDAP): Yes Tetanus Vaccine Date: 3 yrs ago - Medical/Surgical History Hx Asthma: No Hx Chronic Respiratory Disease: Yes Hx Diabetes: No Hx Cardiac Disease: Yes Hx Renal Disease: No Hx Cirrhosis: No Hx Alcoholism: No Hx HIV/AIDS: No Hx Splenectomy or Spleen Trauma: No Other PMH: CAD, PVD, AAA, COPD, CARDIAC STENTS l leg stents Dr. Ga at [facility] - Social History Smoking Status: Former smoker - Physical Exam Exam: General Appearance: Thin male, no acute distress Eyes: Pupils equal and round no pallor or injection ENT, Mouth: Mucous membranes moist Respiratory: Expiratory wheezing noted Cardiovascular: Regular rate and rhythm Gastrointestinal: Abdomen is soft and nontender, no masses, bowel sounds normal Neurological: 5/5 strength all 4 extremities Skin: Mild ecchymosis noted to bilateral upper extremities, chronic in nature Musculoskeletal: Neck is supple nontender Extremities: symmetrical, full range of motion Constitutional: Initial Vital Signs Temperature (C) 36.5 C 02/08/19 15:22 Heart Rate 75 02/08/19 15:22 Respiratory Rate 16 02/08/19 15:22 Blood Pressure 159/77 H 02/08/19 15:22 O2 Sat (%) 96 02/08/19 15:22 O2 Delivery Mode Room Air Allergies/Adverse Reactions: lorazepam Allergy (Verified 01/27/19 09:54) Other-Enter Comments Home Medications: Medication Instructions Recorded Clopidogrel Bisulfate [Plavix (*)] 75 mg PO DAILY 03/03/12 Acetaminophen [Tylenol 325mg (*)] 650 mg PO BID 08/27/16 Albuterol [Proventil Inhaler HFA 1 - 2 puffs IH Q4H PRN 08/27/16 (*)] Aspirin EC [Aspirin EC 81 mg (*)] 81 mg PO HS 08/27/16 Atorvastatin Calcium [Lipitor 20 40 mg PO DAILY 08/27/16 mg (*)] Calcium Carbonate [Oyster Shell 500 mg PO DAILY 08/27/16 Calcium 500 mg (*)] Carvedilol [Coreg (*)] 12.5 mg PO BIDMEAL 08/27/16 Cholecalciferol Vit D3 [Vitamin D3 2,000 units PO DAILY 08/27/16 (*)] Cyanocobalamin [Vitamin B12 (*)] 5,000 mcg PO DAILY 08/27/16 Herbals/Supplements -Info Only 1 ea PO DAILY 08/27/16 Magnesium Oxide [Magnesium Oxide 400 mg PO DAILY 08/27/16 400 mg (*)] Pantoprazole Sodium [Protonix 40mg 40 mg PO DAILY #20 tab 11/29/16 (*)] Fluticasone/Salmeter 500/50Mcg 1 puffs IN BID 10/01/17 [Advair 500/50 (*)] Ipratropium/Albuterol [Duoneb (*)] 3 ml IN BID 10/01/17 Loratadine [Claritin 10 mg] 10 mg PO HS 10/01/17 Losartan/Hctz 50/12.5 [Hyzaar 1 tab PO DAILY 10/01/17 50/12.5MG (*)] Lidocaine [Lidoderm] 1 each TP AD PRN #15 adh..patch 05/22/18 predniSONE [prednisone 20mg (RX)] 3 tab PO DAILY #15 tab 05/22/18 traMADol [Ultram 50 mg (*)] 50 mg PO BID PRN #30 tab 05/22/18 oxyCODONE/APAP 5/325 [Percocet] 1 tab PO Q4-6PRN PRN #11 tab 05/29/18 predniSONE [prednisone 20mg (RX)] 3 tab PO DAILY #15 tab 06/27/18 Azithromycin [Zithromax] 250 mg PO DAILY #6 tab 01/27/19 methylPREDNISolone [Medrol Dose 1 each PO AD #1 ea 01/27/19 Curtis] Albuterol [Ventolin Hfa Inhaler] 2 puffs IH QID PRN #1 mdi 02/08/19 predniSONE [prednisone 20mg (RX)] 3 tab PO DAILY #15 tab 02/08/19 Medical Decision Making - Diagnostics Imaging Results: Imaging Impressions Chest X-Ray 02/08/19 16:06 Impression: Chronic mild airways disease. ED Course/Re-evaluation: Patient presents the ED with ongoing bronchospasm. The patient will be restarted on prednisone. I will start him 60 mg a day for the next 5 days. I have asked him to follow up with his primary care provider Dr. Kulkarni as he may need a more prolonged taper. Patient's vital signs are stable. He has no evidence of respiratory failure. He has no evidence of sepsis or a significant metabolic derangement. The patient will follow up with his primary care provider Dr. Kulkarni for recheck check in the next several days. We have notified him through the case picker of the patient's 2nd visit to the ED today. Differential Diagnosis: Differential diagnosis considered includes asthma, bronchitis, pneumonia - Data Points Laboratory Results: Laboratory Results 02/08/19 16:20 02/08/19 16:20 02/08/19 02/08/19 16:20 16:20 WBC 9.58 10^3/uL H 10^3/uL (3.80-9.50) RBC 3.96 10^6/uL L 10^6/uL (4.40-6.38) Hgb 13.0 g/dL L g/dL (13.7-17.5) Hct 37.6 % L % (40.0-51.0) MCV 94.9 fL fL (81.5-99.8) MCH 32.8 pg pg (27.9-34.1) MCHC 34.6 g/dL g/dL (32.4-36.7) RDW 11.8 % % (11.5-15.2) Plt Count 172 10^3/uL 10^3/uL (150-400) MPV 9.1 fL fL (8.7-11.7) Neut % (Auto) 76.9 % H % (39.3-74.2) Lymph % (Auto) 13.3 % L % (15.0-45.0) [place] % (Auto) 7.8 % % (4.5-13.0) Eos % (Auto) 1.1 % % (0.6-7.6) Baso % (Auto) 0.4 % % (0.3-1.7) Nucleat RBC Rel Count 0.0 % % (0.0-0.2) Absolute Neuts (auto) 7.36 10^3/uL H 10^3/uL (1.70-6.50) Absolute Lymphs (auto) 1.27 10^3/uL 10^3/uL (1.00-3.00) Absolute Monos (auto) 0.75 10^3/uL 10^3/uL (0.30-0.80) Absolute Eos (auto) 0.11 10^3/uL 10^3/uL (0.03-0.40) Absolute Basos (auto) 0.04 10^3/uL 10^3/uL (0.02-0.10) Absolute Nucleated RBC 0.00 10^3/uL 10^3/uL (0-0.01) Immature Gran % 0.5 % % (0.0-1.1) Immature Gran # 0.05 10^3/uL 10^3/uL (0.00-0.10) Sodium 131 mEq/L L mEq/L (135-145) Potassium 4.3 mEq/L mEq/L (3.5-5.2) Chloride 95 mEq/L L mEq/L (97-110) Carbon Dioxide 26 mEq/l mEq/l (22-31) Anion Gap 10 mEq/L mEq/L (6-14) BUN 18 mg/dL mg/dL (7-23) Creatinine 0.7 mg/dL mg/dL (0.7-1.3) Estimated GFR > 60 Glucose 125 mg/dL H mg/dL (70-100) Calcium 9.1 mg/dL mg/dL (8.5-10.4) Departure - Departure Disposition: Home, Routine, Self-Care Clinical Impression: Chronic obstructive pulmonary disease with acute exacerbation Condition: Good Instructions: Acute Bronchitis (ED) Additional Instructions: 1. Use albuterol inhaler up to every 2-4 hours as needed for cough. 2. Return to the ED for markedly worsening respiratory symptoms 3. Resume prednisone as prescribed. 4. Contact your primary care provider to schedule a follow-up visit in the next 2-3 days. You may need a more prolonged taper of your steroids. Referrals: Adolfo Kulkarni MD [Primary Care Provider] - As per Instructions Prescriptions: Albuterol [Ventolin Hfa Inhaler] 2 puffs IH QID PRN #1 mdi PRN Reason: for shortness of breath predniSONE [prednisone 20mg (RX)] 3 tab PO DAILY #15 tab
[2019-02-08 18:32] VITALS: BP 178/94
== END 2019-02-08 18:32 | disposition home or self-care (01) ==
DX: J44.1 Chronic obstructive pulmonary disease with (acute) exacerbation (principal)

== ENCOUNTER 2019-02-15 12:49 | Emergency (ER) | payer OTHER ==
[2019-02-15] MEDS ORDERED: IOPAMIDOL (ISOVUE 370) 100 ML BTL IV ONE (13:55)
== END 2019-02-15 15:47 | disposition home or self-care (01) ==
DX: R07.9 Chest pain, unspecified (principal); J42 Unspecified chronic bronchitis; I25.10 Atherosclerotic heart disease of native coronary artery without angina pectoris; Z87.891 Personal history of nicotine dependence
CPT/HCPCS: 71275; 93005; 99285; Q9967